=== PATIENT | male | born 1935 | race Caucasian/White ===

== ENCOUNTER 2017-09-25 14:39 | Observation (INO) ==
[2017-09-25 16:35] LABS: Basophils % 0.8 %; Eosinophils # 0.2 K/mcL (0.0-0.6); Hematocrit 42.1 % (37.5-50.1); Hemoglobin 13.9 g/dL (12.9-16.9); Immature Granulocytes % 0.4 % (0-4); Lymphocytes # 0.7 K/mcL (0.6-4.6); Lymphocytes % 13.8 %; Mean Corpuscular Hemoglobin 31.7 pg (28.0-33.3); Mean Corpuscular Volume 96.1 fL (83.0-100.0); Mean Platelet Volume 8.6 fL (9.4-12.4); Monocytes # 0.5 K/mcL (0.0-1.3); Monocytes % 9.1 %; Neutrophils # 3.9 K/mcL (1.6-8.9); Platelet Count 211 K/mcL (140-400); Red Blood Count 4.38 M/mcL (4.19-5.50); Segmented Neutrophils % 72.9 %
[2017-09-25 16:50] LABS: BUN/Creatinine Ratio 15 (6-26); Blood Urea Nitrogen 17 mg/dL (8-23); Calcium 9.6 mg/dL (8.6-10.3); Carbon Dioxide 29 mEq/L (23-29); Chloride 106 mEq/L (98-107); Glucose 88 mg/dL (70-105); Osmolality,Calculated 293 (280-300); Potassium 3.7 mEq/L (3.5-5.1); Sodium 141 mEq/L (136-145); eGFR For African Americans > 60 (> 60); eGFR For Non-African Americans > 60 (> 60)
--- NOTE | 2017-09-25 17:02 | Emergency Department Note ---
Disposition Clinical Impression: Accelerated hypertension, Chest pain, rule out acute myocardial infarction, Heart palpitations, History of CVA (cerebrovascular accident) Disposition: Admitted As Inpatient Condition: Fair Referrals: Santiago Weaver DO [Primary Care Provider] - Forms: ED Satisfaction Letter Time of Disposition: 18:32 General Adult HPI - General Chief complaint: ED Headache Stated complaint: B/P, Heart flutter Time Seen by Provider: 09/25/17 16:08 Source: patient, family Limitations: no limitations Nursing Notes Reviewed: Yes Vital Signs Reviewed: Yes - History of Present Illness HPI Narrative: 82-year-old male history of CVA, CAD status post stents 3, hypertension, hyperlipidemia, taking losartan, hydralazine, Toprol for blood pressure presents with elevated blood pressure, with left-sided arm pain, palpitations, blurry vision. This occurred at about 7 hours prior to arrival. He states his symptoms have improved, he still is mild headache, he denies any new palpitations. His blood pressure was 200/80, patient states that he is concerned about his heart is previous heart attacks, blurry vision was transient , he felt in both eyes. Patient denies history of DVT or PE, he takes aspirin and Plavix but is not taking any other blood thinners. Patient denies chest pain or tightness at this time, but he does have some right lower quadrant pain. Patient denies fever and chills but he has had some loose stool and diarrhea lately. Reports 3 out of 10 right lower quadrant abdominal pain as well. Pt Subjective Complaint: ELevated BLood Pressure Onset (ago): day(s) (7) Location: head, abdomen Radiation: extremity Pain Severity: moderate Pain Scale: 5 Associated symptoms: Reports: headaches, nausea/vomiting. Denies: confusion, chest pain, cough, diaphoresis, fever/chills - Related Data Home Medications Medication Instructions Recorded Confirmed Amlodipine Besylate 10 mg PO DAILY 04/20/16 04/20/16 Aspirin 81 mg PO DAILY 04/20/16 04/20/16 Cholecalciferol (D-3) [Vitamin D] 2,000 unit PO DAILY 04/20/16 04/20/16 Clopidogrel [Plavix] 75 mg PO DAILY 04/20/16 04/20/16 Cyanocobalamin (B-12) [Vitamin B12] 1,000 mcg PO DAILY 04/20/16 04/20/16 Dicyclomine [Bentyl] 10 mg PO QID 04/20/16 04/20/16 Fluticasone Propionate Nasal 1 spray NS BID 04/20/16 04/20/16 [Flonase] Fluvastatin Sodium [Lescol] 40 mg PO QPM 04/20/16 04/20/16 Furosemide [Lasix] 20 mg PO DAILY 04/20/16 04/20/16 Ipratropium [place] 1 spray NS BID 04/20/16 04/20/16 Krill/Om-3/Dha/Epa/Phospho/Ast 1,000 mg PO DAILY 04/20/16 04/20/16 [Krill Oil 1,000 mg Softgel] L. Acidophilus/Pectin, [place] 1 cap PO DAILY 04/20/16 04/20/16 [Acidophilus Probiotic Capsule] Losartan Potassium [Cozaar] 100 mg PO DAILY 04/20/16 04/20/16 Magnesium 250 mg PO DAILY 04/20/16 04/20/16 Metoprolol [Lopressor] 25 mg PO BID 04/20/16 04/20/16 Nitroglycerin [Nitrostat] 0.4 mg SL AD PRN 04/20/16 04/20/16 Oregano Oil [Oil of Oregano] 1,500 mg PO DAILY 04/20/16 04/20/16 Vitamin E (Dl,Tocopheryl Acet) 100 unit PO DAILY 04/20/16 04/20/16 [Vitamin E] Allergies Allergy/AdvReac Type Severity Reaction Status Date / Time Dicloxacillin Allergy Swelling Verified 04/20/16 09:46 of Lip/Tongue/Throat nifedipine Allergy See Verified 04/20/16 09:46 Comments quinine Allergy See Verified 04/20/16 09:46 Comments Wcdmtyq-Cig-Alr Reductase Allergy See Verified 04/20/16 09:46 Inhibitor Comments [Statins] Sulfa (Sulfonamide Allergy See Verified 04/20/16 09:46 Antibiotics) Comments JUDITH Inhibitors AdvReac Cough Verified 04/20/16 09:46 All systems ED: reviewed and negative except as stated. Review of Systems: As Per HPI Constitutional: Denies: fever, chills Eyes: Denies: eye pain ENT ED: Denies: ear pain Cardiovascular: Reports: as per HPI, palpitations Respiratory: Denies: cough, dyspnea, wheezes Gastrointestinal: Reports: abdominal pain, nausea. Denies: vomiting Genitourinary: Denies: urgency, dysuria Neurological: Reports: as per HPI, headache. Denies: weakness, numbness, paresthesias Past Medical History - Past Medical History Attestation: Yes The following information was validated with the patient. Source: patient Medical history: Reports: coronary artery disease, CVA, hyperlipidemia, hypertension, kidney stones, renal disease Surgical history: Reports: angioplasty/stent, sinus surgery, other Psychiatric history: Reports: no psych history - Social History Smoking Status: Never smoker Smokeless Tobacco Status: No Alcohol use: Reports: none Drug use: Reports: none Physical Exam Constitutional: NAD, vital signs elevated blood pressure. Eyes: PERRLA, sclera anicteric ENT & Mouth: MM dry Neck: normal inspection, neck is supple Resp: CTA bilaterally, no resp distress CV: RRR, no m/g/r GI: normal inspection, soft, no guarding or rigidity Neuro: A&O3, CNII-XII grossly intact, LUNA, 5 out of 5 muscle strength upper and lower extremity 4/5 left which is his baseline. No gaze nystagmus, cranial nerves intact, gait within normal limits for age Skin: on limited exam, skin intact with no rashes or lesions - General Limitations: no limitations General appearance: alert, in no apparent distress Course Course Narrative: 82-year-old male with concerning signs and symptoms given blurry vision, headache, elevated hypertension high blood pressure in the 200 systolic at home , currently is 180, he does not appear in acute distress, however he had all these symptoms happen about 7 hours prior to arrival with a history of stroke and CAD palpitations and left arm pain, and headache concerning for anginal equivalent, likely the patient will need to have a head CT, we will give him basic lab work chest x-ray CBC BMP troponin. NIH is 0 - Reevaluation(s) Reevaluation #1: Negative CT scan was negative, the patient has required labetalol 10 mg 2, blood pressure still in the 180s, he chronically lives elevated no no recent to much acutely, given the patient has elevated blood pressure, symptomatically with blurry vision, palpitations left arm pain, and headache, concern for symptomatically hypertension, possible hypertensive emergency, as well as ACS rule out chest pain admitted to [facility] Time: 18:29 Vital Signs Temperature 98.5 F 09/25/17 14:46 Pulse Rate 75 09/25/17 14:46 Respiratory Rate 18 09/25/17 14:46 Blood Pressure 183/107 09/25/17 14:46 O2 Sat by Pulse Oximetry 97 09/25/17 14:46 Temperature 98.5 F 09/25/17 14:46 Pulse Rate 65 09/25/17 18:36 Respiratory Rate 20 09/25/17 18:36 Blood Pressure 167/99 09/25/17 18:36 O2 Sat by Pulse Oximetry 97 09/25/17 18:36 Oxygen Delivery Oxygen Delivery Room Air Medical Decision Making - MDM Narrative Medical decision making narrative: 82-year-old male admitted for possible slurred hypertension, negative head CT and chest x-ray and labwork, troponin was 0.03 recommend trending troponin, possible MRI head, blood pressure reduction over 24 hours, admitted to to the hospitalist service - Medical Records Medical records reviewed: Yes I reviewed the patient's medical records. - Lab Data Lab results reviewed: Yes I reviewed the patient's lab results. Result diagrams: 09/25/17 16:19 09/25/17 16:19 Lab Results 09/25/17 09/25/17 09/25/17 Range/Units 16:19 16:19 16:19 WBC 5.3 (4.3-11.1) K/mcL RBC 4.38 (4.19-5.50) M/mcL Hgb 13.9 (12.9-16.9) g/dL Hct 42.1 (37.5-50.1) % MCV 96.1 (83.0-100.0) fL MCH 31.7 (28.0-33.3) pg MCHC 33.0 (31.6-35.5) g/dL RDW 14.0 (11.5-14.5) % Plt Count 211 (140-400) K/mcL MPV 8.6 L (9.4-12.4) fL Immature Gran % 0.4 (0-4) % Seg Neutrophils % 72.9 % Lymphocytes % 13.8 % Monocytes % 9.1 % Eosinophils % 3.0 % Basophils % 0.8 % Neutrophils # 3.9 (1.6-8.9) K/mcL Lymphocytes # 0.7 (0.6-4.6) K/mcL Monocytes # 0.5 (0.0-1.3) K/mcL Eosinophils # 0.2 (0.0-0.6) K/mcL Basophils # 0.0 (0.0-0.2) K/mcL Sodium 141 (136-145) mEq/L Potassium 3.7 (3.5-5.1) mEq/L Chloride 106 (98-107) mEq/L Carbon Dioxide 29 (23-29) mEq/L BUN 17 (8-23) mg/dL Creatinine 1.15 (0.70-1.30) mg/dL Est GFR ( Amer) > 60 (> 60) Est GFR (Non-Af Amer) > 60 (> 60) BUN/Creatinine Ratio 15 (6-26) Glucose 88 (70-105) mg/dL Calculated Osmolality 293 (280-300) Calcium 9.6 (8.6-10.3) mg/dL Magnesium (1.6-2.6) mg/dL Troponin I 0.03 (< 0.04) ng/mL TSH (0.340-5.600) mcIU/mL 09/25/17 09/25/17 Range/Units 16:19 16:19 WBC (4.3-11.1) K/mcL RBC (4.19-5.50) M/mcL Hgb (12.9-16.9) g/dL Hct (37.5-50.1) % MCV (83.0-100.0) fL MCH (28.0-33.3) pg MCHC (31.6-35.5) g/dL RDW (11.5-14.5) % Plt Count (140-400) K/mcL MPV (9.4-12.4) fL Immature Gran % (0-4) % Seg Neutrophils % % Lymphocytes % % Monocytes % % Eosinophils % % Basophils % % Neutrophils # (1.6-8.9) K/mcL Lymphocytes # (0.6-4.6) K/mcL Monocytes # (0.0-1.3) K/mcL Eosinophils # (0.0-0.6) K/mcL Basophils # (0.0-0.2) K/mcL Sodium (136-145) mEq/L Potassium (3.5-5.1) mEq/L Chloride (98-107) mEq/L Carbon Dioxide (23-29) mEq/L BUN (8-23) mg/dL Creatinine (0.70-1.30) mg/dL Est GFR ( Amer) (> 60) Est GFR (Non-Af Amer) (> 60) BUN/Creatinine Ratio (6-26) Glucose (70-105) mg/dL Calculated Osmolality (280-300) Calcium (8.6-10.3) mg/dL Magnesium 2.1 (1.6-2.6) mg/dL Troponin I (< 0.04) ng/mL TSH 2.191 (0.340-5.600) mcIU/mL - Radiology Data Radiology results reviewed: Yes I reviewed the patient's radiology results. Chest X-Ray 09/25/17 14:52 IMPRESSION: 1. No acute abnormality. D/ / Chuck Wheeler MD / Chuck Wheeler MD Interpreting Provider: Chuck Wheeler MD Head CT 09/25/17 16:56 IMPRESSION: No acute intracranial abnormality. D/ / Yari Lind MD / Yari Lind MD Interpreting Provider: Yari Lind MD Abdomen/Pelvis CT 09/25/17 17:02 IMPRESSION: 1. No acute abnormality. 2. Prostatomegaly with chronic bladder outlet obstruction D/ / Chuck Wheeler MD / Chuck Wheeler MD Interpreting Provider: Chuck Wheeler MD - EKG Data EKG #1 EKG attestation: Yes I reviewed and interpreted this EKG. EKG shows normal: sinus rhythm Rate: normal (69 bpm to 40 PRQS [address] segment elevations or depressions.) Attestation Statement - Attestation Attestation: I, Mandeep Rousseau, examined this patient and my medical decision-making was reviewed with the COAL HAND[employer] SUPERVISOR/PA/Advanced Practice Nurse/Resident Physician. I agree with the documented findings, disposition and treatment plan as described except to the extent set forth below. 82-year-old male presents emergency Department with concerns of acute onset elevated blood pressure, left upper extremity pain, blurred vision. Patient recently evaluated in the hospital for elevated blood pressure. Repeat BP in the emergency department has systolic of 220. Patient denies missing any of his medications. Patient has a history of previous CVA with weakness in the left upper extremity. He denies worsening of those symptoms. CT of the head was negative for acute fracture [place] hemorrhage. Initial troponin was negative. Patient given labetalol for elevated BP. Patient admitted to the hospital for further care and evaluation.
[2017-09-25] MEDS ORDERED: *HR* Labetalol 20 MG/4 ML SYRINGE IVP ONE (18:00)
[2017-09-25] MEDS: *HR* Labetalol 100 MG/20 ML MDV IVP ONE ×2 (18:04→18:06)
[2017-09-25] MEDS ORDERED: Aspirin 81 MG TAB.CHEW PO ONE (18:10)
[2017-09-26] MEDS ORDERED: Naloxone 0.4 MG/ML INJ IVP PRN (02:25)
[2017-09-26] MEDS ORDERED: Aspirin 81 MG TAB.CHEW PO PRN (02:27)
[2017-09-26] MEDS ORDERED: Nitroglycerin 0.4 MG TAB.SUBL SL PRN (02:27)
--- NOTE | 2017-09-26 02:36 | Internal Med History&Physical ---
Date of Encounter: 09/26/17 Time of Encounter: :31 Assessment and Plan (1) Accelerated hypertension Current visit: Yes Status: Acute 82/male Admitted with worsening headache along with the blurry vision. Noted that his blood pressure was 200/80. CT head/abdomen pelvis: Negative for any acute pathology. Chest x-ray: Negative for any acute process. Please note that patient is on 3 different antihypertensive medications. Patient received intravenous labetalol in the emergency room. Patient's blood pressure has a downward trend. The last blood pressure was 159/71.(20% lowering of systolic blood pressure) On examination: Patient is comfortably lying in the bed. Patient is not keen for complete neurological examination as it is too a.m. in the morning. Brief neurological examination was within normal limits. Assessment: Accelerated hypertension likely secondary to the noncompliance. Multiple comorbid conditions. Plan: Admitted as an observation. Cycle troponin. Resume medication. Repeat labs tomorrow. Explained to the patient at length regarding medication importance/ noncompliance issue. Patient promises that he will take his medications regularly. Of note I examined this patient in31 along with the patient's RN at bedside All questions answered (2) Coronary artery disease Current visit: Yes Status: Acute Patient is known to have a coronary artery disease. Patient is chest pain-free at this time. We will resume all the home medication. Qualifiers: Coronary Disease-Associated Artery/Lesion type: [place] artery [place] vs. transplanted heart: [place] heart Associated angina: angina presence unspecified Qualified Code(s): I25.10 - Atherosclerotic heart disease of [place] coronary artery without angina pectoris (3) Hyperlipidemia Current visit: Yes Status: Acute We will get lipid panel tomorrow. We will resume Lipitor 40 mg in the night. Qualifiers: Hyperlipidemia type: unspecified Qualified Code(s): E78.5 - Hyperlipidemia , unspecified (4) History of CVA (cerebrovascular accident) Current visit: Yes Status: Acute Patient is a old history of CVA. At this point brief neurological examination was within acceptable range. (5) DVT prophylaxis Current visit: Yes Status: Acute SCD Medical decision making: This patient has a moderate to severe risk of worsening in spite of being on appropriate medication due to the underlying complex medical condition. Internal Medicine - H&P: HPI Chief complaint: Headache Admitted From: Emergency Dept Plans for Post Hospital Care: Home History of present illness: Mr. Silva is a 82 year old male who has primary care physician from [place] ( Dr Santiago Hearn). Patient is past medical history of hypertension which is uncontrolled, hyperlipidemia, old CVA, coronary artery disease with stent( per patient), kidney stones in the past. 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 Patient had blurry vision for a short period of time and this was the main reason why he decided to come to the emergency room for further evaluation. She denies chest pain, shortness of breath, nausea, vomiting, abdominal pain, dizziness and diarrhea. Patient was evaluated in the emergency room. Basic labs were drawn which were inconclusive. From the imaging point of view CT scan of the head/abdomen and pelvis not reveal any abnormality. Chest x-ray was negative. Upon arrival to the emergency room it was noted that patient's blood pressure was 200/80. Please note that patient is on 3 different antihypertensive that his losartan, hydralazine and Coreg. Patient received intravenous labetalol in the emergency room. Reason for admission: Uncontrolled blood pressure/hypertensive urgency. Past Med Surg Social Fam HX - Past Medical History Medical history: coronary artery disease, CVA, hyperlipidemia, hypertension, kidney stones, renal disease Psychiatric history: no psych history - Past Surgical History Surgical History: angioplasty/stent, sinus surgery, other - Social History Smoking Status: Never smoker Smokeless Tobacco Status: No Alcohol use: none Drug use: none Internal Medicine - H&P: Meds Aspirin 81 mg PO DAILY PRN 04/20/16 [History] Cholecalciferol (D-3) [Vitamin D] 2,000 unit PO DAILY 04/20/16 [History] Clopidogrel [Plavix] 75 mg PO DAILY 04/20/16 [History] Cyanocobalamin (B-12) [Vitamin B12] 1,000 mcg PO DAILY 04/20/16 [History] Fluticasone Propionate Nasal [Flonase] 1 spray NS BID 04/20/16 [History] Furosemide [Lasix] 20 - 30 mg PO DAILY 04/20/16 [History] Ipratropium [place] 1 spray NS BID 04/20/16 [History] L. Acidophilus/Pectin, [place] [Acidophilus Probiotic Capsule] 1 cap PO DAILY [History] Losartan Potassium [Cozaar] 100 mg PO DAILY 04/20/16 [History] Magnesium 250 mg PO DAILY 04/20/16 [History] Nitroglycerin [Nitrostat] 0.4 mg SL Q5M PRN 04/20/16 [History] Oregano Oil [Oil of Oregano] 1,500 mg PO DAILY 04/20/16 [History] Vitamin E (Dl,Tocopheryl Acet) [Vitamin E] 100 unit PO DAILY 04/20/16 [History] Atorvastatin [Lipitor] 40 mg PO HS 09/25/17 [History] Carvedilol 3.125 mg PO BID 09/25/17 [History] Fish Oil/Borage/Flax/Om3,6,9#1 [[place] 3-6-9 1,200 mg Softgel] 1,200 mg PO DAILY 09/25/17 [History] Hydralazine HCl 50 mg PO TID 09/25/17 [History] Vitamin O 2.5 ml PO BID 09/25/17 [History] 3 Allergy/AdvReac Type Severity Reaction Status Date / Time Dicloxacillin Allergy Swelling Verified 04/20/16 09:46 of Lip/Tongue/Throat nifedipine Allergy See Verified 04/20/16 09:46 Comments quinine Allergy See Verified 04/20/16 09:46 Comments Dzxcrwc-Tfu-Chd Reductase Allergy See Verified 04/20/16 09:46 Inhibitor Comments [Statins] Sulfa (Sulfonamide Allergy See Verified 04/20/16 09:46 Antibiotics) Comments JUDITH Inhibitors AdvReac Cough Verified 04/20/16 09:46 All Systems PM: A 10-system review of systems was performed and is negative for pertinent findings except as documented above in the HPI. - Constitutional Constitutional: lethargy, malaise, no chills, no fever(s), no night sweats - EENT Eyes: no change in vision, no discharge, no pain, no photophobia Ears: no ear discharge, no ear pain, no tinnitus Nose, mouth and throat: no dysphagia, no nasal discharge, no neck pain, no sore throat - Cardiovascular Cardiovascular ROS IM: no chest pain, no diaphoresis, no dyspnea, no lightheadedness, no palpitations, no syncope - Respiratory Respiratory: no cough, no dyspnea, no wheezing, no excessive phlegm production - Gastrointestinal Gastrointestinal: no abdominal pain, no diarrhea, no hematemesis, no hematochezia, no melena, no nausea, no vomiting - Musculoskeletal Musculoskeletal ROS IM: no numbness, no tingling - Integumentary Integumentary IM: no rash, no unusual bruising - Neurological Neurological ROS: headache(s), no confusion, no convulsions, no focal weakness, no numbness, no tingling, no tremor(s) - Hematologic/Lymphatic Hematologic/Lymphatic: no easy bruising - Constitutional Vitals: Temp Pulse Resp BP Pulse Ox 97.8 F 67 18 159/71 96 09/25/17 23:33 09/25/17 23:33 09/25/17 23:33 09/25/17 23:33 09/25/17 23:33 General appearance: Present: A&O X 3, pleasant, no acute distress, answers questions appropriately - Head Head exam: Present: atraumatic, normocephalic - Eye Eye exam: Present: PERRL, conjuntiva pink, sclera anicteric Pupils: Present: PERRL - Neck Neck exam general surgery: Present: supple, trachea midline. Absent: lymphadenopathy - Respiratory Respiratory exam: Present: CTAB. Absent: accessory muscle use, rales, rhonchi, wheezes - Cardiovascular Cardiovascular exam: Present: RRR, +S1, +S2. Absent: diastolic murmur, gallop, rubs, systolic murmur - GI/Abdominal GI/Abdominal exam: Present: normal bowel sounds, soft, no peritoneal signs. Absent: distended, tenderness - Extremities Exam Extremities exam: Present: warm, radial pulses palpable and symmetrical. Absent : calf tenderness, cyanotic, pedal edema - Neurological Exam Neurological exam: Present: CN II-XII intact, oriented X3, no focal deficits. Absent: pronater drift, facial droop, speech deficit - Skin Skin exam: Present: dry, intact Internal Med - H&P Results - Labs CBC & Chem 7: 09/25/17 16:19 09/25/17 16:19
[2017-09-26 03:32] LABS: Basophils % 0.5 %; Eosinophils # 0.1 K/mcL (0.0-0.6); Eosinophils % 3.4 %; Hemoglobin 12.5 g/dL (12.9-16.9); Immature Granulocytes % 0.7 % (0-4); Lymphocytes # 0.8 K/mcL (0.6-4.6); Lymphocytes % 18.2 %; Mean Corpuscular HGB Conc 33.8 g/dL (31.6-35.5); Mean Corpuscular Hemoglobin 32.5 pg (28.0-33.3); Mean Corpuscular Volume 96.1 fL (83.0-100.0); Mean Platelet Volume 8.5 fL (9.4-12.4); Monocytes # 0.5 K/mcL (0.0-1.3); Monocytes % 12.5 %; Neutrophils # 2.7 K/mcL (1.6-8.9); Platelet Count 184 K/mcL (140-400); Red Blood Count 3.85 M/mcL (4.19-5.50); Red Cell Distribution Width 13.7 % (11.5-14.5); Segmented Neutrophils % 64.7 %
[2017-09-26 03:50] LABS: Prothrombin Time 10.5 Seconds (9.4-12.1)
[2017-09-26 03:53] LABS: Activated Partial Thrombo Time 29.6 Seconds (26.0-36.0)
[2017-09-26 04:17] LABS: Alanine Aminotransferase 9 Units/L (7-52); Albumin 3.7 g/dL (3.5-5.7); Albumin/Globulin Ratio 1.4 (1.1-2.2); Alkaline Phosphatase 66 Units/L (34-104); Aspartate Amino Transferase 13 Units/L (13-39); BUN/Creatinine Ratio 16 (6-26); Bilirubin,Total 0.9 mg/dL (0.3-1.0); Blood Urea Nitrogen 16 mg/dL (8-23); Carbon Dioxide 28 mEq/L (23-29); Chloride 107 mEq/L (98-107); Chol/HDL Ratio 3.6 (0-4.9); Cholesterol 155 mg/dL (< 200); Globulin 2.6 g/dL (2.4-3.5); Glucose 69 mg/dL (70-105); HDL Cholesterol 43 mg/dL (40-59); LDL Cholesterol,Calculated 75 mg/dL (0-99); Osmolality,Calculated 294 (280-300); Phosphorous 4.2 mg/dL (2.7-4.5); Potassium 3.4 mEq/L (3.5-5.1); Sodium 142 mEq/L (136-145); Total Protein 6.3 g/dL (6.4-8.9); Triglycerides 184 mg/dL (< 150); eGFR For African Americans > 60 (> 60); eGFR For Non-African Americans > 60 (> 60)
[2017-09-26] MEDS ORDERED: Saline Nasal Spray 44 ML BOTTLE NS PRN (07:45)
[2017-09-26] MEDS ORDERED: Cyanocobalamin (B-12) 1,000 MCG TABLET PO SCH (09:00)
[2017-09-26] MEDS ORDERED: Magnesium Oxide 400 MG TABLET PO SCH (09:00)
[2017-09-26] MEDS ORDERED: Aspirin Enteric Coated 81 MG Tablet PO SCH (09:00)
[2017-09-26] MEDS ORDERED: OMEGA PO SCH (09:00)
[2017-09-26] MEDS ORDERED: Fluticasone Propionate Nasal 50 MCG/SPRAY BOTTLE NS SCH (09:00)
[2017-09-26] MEDS ORDERED: hydrALAZINE 25 MG TABLET PO SCH (09:00)
[2017-09-26] MEDS ORDERED: IPRATROPIUM BROMIDE NS SCH (09:00)
[2017-09-26] MEDS ORDERED: Cholecalciferol (D-3) 1,000 UNIT TABLET PO SCH (09:00)
[2017-09-26 11:14] VITALS: BP 130/75
--- NOTE | 2017-09-26 13:58 | Discharge Summary ---
- NOTES TO OUTPATIENT PROVIDER Notes to Outpatient Provider: Follow-up on patient's hypertension Orders not resulted at time of discharge: Echocardiogram ordered and to be done as outpatient Date of Encounter: 09/26/17 Time of Encounter: 13:55 - Discharge Diagnosis (1) Accelerated hypertension Priority: Primary Status: Resolved (2) Coronary artery disease Priority: Secondary Status: Acute Qualifiers: Coronary Disease-Associated Artery/Lesion type: [place] artery [place] vs. transplanted heart: [place] heart Associated angina: angina presence unspecified Qualified Code(s): I25.10 - Atherosclerotic heart disease of [place] coronary artery without angina pectoris (3) Hypertension Priority: Secondary Status: Chronic Qualifiers: Hypertension type: essential hypertension Qualified Code(s): I10 - Essential (primary) hypertension Hospital course: Mr. Silva is a 82 year old male patient with a history of coronary artery disease, hypertension, hyperlipidemia, prior stroke presented to the ER with complaints of headache associated with blurred vision for a short period of time prior to presentation. His symptoms improved by the time he came to the ER although he continued to have a headache. CT scan of the head was negative for any acute stroke. Patient was found to be severely hypertensive with blood pressure of 209/121 mm Hg. He was treated with labetalol intravenously and then hospitalized for further monitoring. Since hospitalization his blood pressure has been better controlled. He has been placed back on his usual antihypertensive regimen. His headache has improved. He has not had any chest pain. Blurred vision had resolved prior to presentation. Troponins have been negative. He is now stable to be discharged home. His dosage of carvedilol will be increased to 6.25 mg by mouth twice daily to control his blood pressure better. His other medications are left unchanged at this time. He will follow up with his primary care provider for further management of his hypertension. He is advised to return to the ER if he develops a recurrence of his symptoms. He is also requests to stay compliant with his medication regimen to avoid further episodes of accelerated hypertension. Patient is set up for an echocardiogram as outpatient. He can follow-up on this with his primary care provider. Discharge discussed with: patient - Time Spent with Patient Total time spent providing and/or coordinating discharge services: Less than 30 minutes (25 min) - Discharge Medications Prescriptions: Carvedilol [Coreg] 6.25 mg PO BIDWM #60 tablet Home Medications: Aspirin 81 mg PO DAILY PRN 04/20/16 [History] Cholecalciferol (D-3) [Vitamin D] 2,000 unit PO DAILY 04/20/16 [History] Clopidogrel [Plavix] 75 mg PO DAILY 04/20/16 [History] Cyanocobalamin (B-12) [Vitamin B12] 1,000 mcg PO DAILY 04/20/16 [History] Fluticasone Propionate Nasal [Flonase] 1 spray NS BID 04/20/16 [History] Furosemide [Lasix] 20 - 30 mg PO DAILY 04/20/16 [History] Ipratropium [place] 1 spray NS BID 04/20/16 [History] L. Acidophilus/Pectin, [place] [Acidophilus Probiotic Capsule] 1 cap PO DAILY [History] Losartan Potassium [Cozaar] 100 mg PO DAILY 04/20/16 [History] Magnesium 250 mg PO DAILY 04/20/16 [History] Nitroglycerin [Nitrostat] 0.4 mg SL Q5M PRN 04/20/16 [History] Oregano Oil [Oil of Oregano] 1,500 mg PO DAILY 04/20/16 [History] Vitamin E (Dl,Tocopheryl Acet) [Vitamin E] 100 unit PO DAILY 04/20/16 [History] Atorvastatin [Lipitor] 40 mg PO HS 09/25/17 [History] Fish Oil/Borage/Flax/Om3,6,9#1 [[place] 3-6-9 1,200 mg Softgel] 1,200 mg PO DAILY 09/25/17 [History] Hydralazine HCl 50 mg PO TID 09/25/17 [History] Vitamin O 2.5 ml PO BID 09/25/17 [History] Carvedilol [Coreg] 6.25 mg PO BIDWM #60 tablet 09/26/17 [Rx] Allergies/Adverse Reactions: 3 Allergy/AdvReac Type Severity Reaction Status Date / Time Dicloxacillin Allergy Swelling Verified 04/20/16 09:46 of Lip/Tongue/Throat nifedipine Allergy See Verified 04/20/16 09:46 Comments quinine Allergy See Verified 04/20/16 09:46 Comments Gltyewu-Ayi-Nol Reductase Allergy See Verified 04/20/16 09:46 Inhibitor Comments [Statins] Sulfa (Sulfonamide Allergy See Verified 04/20/16 09:46 Antibiotics) Comments JUDITH Inhibitors AdvReac Cough Verified 04/20/16 09:46 Date of admission: 09/25/17 19:54 Primary care physician: Santiago Weaver DO Discharging clinician: Reba Snider Anticipated date of discharge: 09/26/17 - Constitutional Vitals: Temp Pulse Resp BP Pulse Ox 98.3 F 72 14 130/75 96 09/26/17 11:11 09/26/17 11:11 09/26/17 11:11 09/26/17 11:11 09/26/17 11:11 General appearance: Present: A&O X 3, pleasant, no acute distress, answers questions appropriately - Respiratory Respiratory exam: Present: CTAB. Absent: accessory muscle use, rales, rhonchi, wheezes - Cardiovascular Cardiovascular exam: Present: RRR, +S1, +S2. Absent: diastolic murmur, gallop, rubs, systolic murmur - GI/Abdominal GI/Abdominal exam: Present: normal bowel sounds, soft, no peritoneal signs. Absent: distended, tenderness - Extremities Exam Extremities exam: Present: warm, radial pulses palpable and symmetrical. Absent : calf tenderness, cyanotic, pedal edema - Neurological Exam Neurological exam: Present: alert, CN II-XII intact, oriented X3, no focal deficits, strengths equal and symetr throughout. Absent: facial droop, speech deficit - Patient Status Disposition: Home, Self-Care Condition: Good Functional capacity at discharge: independent ambulation Overall status at discharge: patient is progressing back to baseline - Ambulatory Orders Ambulatory Orders: EV echocardiogram Time Frame: 1 Day, Facility: [facility], Location: Cardiopulmonary Svc EV echocardiogram Time Frame: 1 Day, Facility: [facility], Location: Cardiopulmonary Svc - Discharge Instructions Instructions: Chronic Hypertension (DC) Follow Up With: Santiago Weaver DO [Primary Care Provider] - 10/03/17 1:00 pm (Follow up as scheduled ) - Diet and Activity Activity: increase activity as tolerated Diet: low fat, low cholesterol, low salt diet
--- NOTE | 2017-09-29 09:22 | Electrocardiograph Report ---
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
== END 2017-09-26 15:40 | disposition home or self-care (01) ==
LOC: 2ANU 14:39 → EMEROO 14:39 → SUATTDRO 19:54 → 2ANU 20:17
PROVIDERS: ADMIT Internal Medicine; ATTEND Internal Medicine

== ENCOUNTER 2017-10-10 02:47 | Inpatient (IN) ==
[2017-10-10] MEDS ORDERED: Nitroglycerin 0.4 MG TAB.SUBL SL ONE (03:05)
[2017-10-10 03:14] LABS: Basophils # 0.1 K/mcL (0.0-0.2); Basophils % 0.5 %; Eosinophils # 0.1 K/mcL (0.0-0.6); Eosinophils % 1.5 %; Hematocrit 40.7 % (37.5-50.1); Hemoglobin 13.4 g/dL (12.9-16.9); Immature Granulocytes % 0.5 % (0-4); Lymphocytes # 0.9 K/mcL (0.6-4.6); Lymphocytes % 9.3 %; Mean Corpuscular HGB Conc 32.9 g/dL (31.6-35.5); Mean Corpuscular Hemoglobin 31.8 pg (28.0-33.3); Mean Corpuscular Volume 96.7 fL (83.0-100.0); Mean Platelet Volume 8.3 fL (9.4-12.4); Monocytes # 0.7 K/mcL (0.0-1.3); Monocytes % 7.8 %; Neutrophils # 7.4 K/mcL (1.6-8.9); Platelet Count 223 K/mcL (140-400); Red Blood Count 4.21 M/mcL (4.19-5.50); Red Cell Distribution Width 13.5 % (11.5-14.5); Segmented Neutrophils % 80.4 %
--- NOTE | 2017-10-10 03:16 | Emergency Department Note ---
Disposition Clinical Impression: Elevated troponin Chest pain Qualifiers: Chest pain type: unspecified Qualified Code(s): R07.9 - Chest pain, unspecified Disposition: Admitted As Inpatient Condition: Fair Forms: ED Satisfaction Letter General Adult HPI - General Chief complaint: ED Chest Pain Stated complaint: Chest pain Time Seen by Provider: 10/10/17 02:51 Source: patient Limitations: no limitations Nursing Notes Reviewed: Yes Vital Signs Reviewed: Yes - History of Present Illness HPI Narrative: 82 y/o male w/ PMH of CAD, HTN, HLD, CKD. 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 Is not having dyspnea. No diaphoresis. Last cath was about 5 years ago and does have stents. Also admits to generalized fatigue. Pain is not pleuritic. No hemoptysis. Took a nitro at home w/o relief. 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 Radiation: non-radiation Pain Severity: severe Pain Scale: 8 Improves with: nothing Worsens with: nothing Associated symptoms: Reports: denies other symptoms Treatments Prior to Arrival: none - Related Data Home Medications Medication Instructions Recorded Confirmed Aspirin 81 mg PO DAILY PRN 04/20/16 09/25/17 Cholecalciferol (D-3) [Vitamin D] 2,000 unit PO DAILY 04/20/16 09/25/17 Clopidogrel [Plavix] 75 mg PO DAILY 04/20/16 09/25/17 Cyanocobalamin (B-12) [Vitamin B12] 1,000 mcg PO DAILY 04/20/16 09/25/17 Fluticasone Propionate Nasal 1 spray NS BID 04/20/16 09/25/17 [Flonase] Furosemide [Lasix] 20 - 30 mg PO DAILY 04/20/16 09/25/17 Ipratropium [place] 1 spray NS BID 04/20/16 09/25/17 L. Acidophilus/Pectin, [place] 1 cap PO DAILY 04/20/16 09/25/17 [Acidophilus Probiotic Capsule] Losartan Potassium [Cozaar] 100 mg PO DAILY 04/20/16 09/25/17 Magnesium 250 mg PO DAILY 04/20/16 09/25/17 Nitroglycerin [Nitrostat] 0.4 mg SL Q5M PRN 04/20/16 09/25/17 Oregano Oil [Oil of Oregano] 1,500 mg PO DAILY 04/20/16 09/25/17 Vitamin E (Dl,Tocopheryl Acet) 100 unit PO DAILY 04/20/16 09/25/17 [Vitamin E] Atorvastatin [Lipitor] 40 mg PO HS 09/25/17 09/25/17 Fish Oil/Borage/Flax/Om3,6,9#1 1,200 mg PO DAILY 09/25/17 09/25/17 [[place] 3-6-9 1,200 mg Softgel] Hydralazine HCl 50 mg PO TID 09/25/17 09/25/17 Vitamin O 2.5 ml PO BID 09/25/17 09/25/17 Previous Rx's Medication Instructions Recorded Carvedilol [Coreg] 6.25 mg PO BIDWM #60 tablet 09/26/17 Allergies Allergy/AdvReac Type Severity Reaction Status Date / Time Dicloxacillin Allergy Swelling Verified 04/20/16 09:46 of Lip/Tongue/Throat nifedipine Allergy See Verified 04/20/16 09:46 Comments quinine Allergy See Verified 04/20/16 09:46 Comments [id number] Reductase Allergy See Verified 04/20/16 09:46 Inhibitor Comments [Statins] Sulfa (Sulfonamide Allergy See Verified 04/20/16 09:46 Antibiotics) Comments JUDITH Inhibitors AdvReac Cough Verified 04/20/16 09:46 All systems ED: reviewed and negative except as stated. Constitutional: Denies: fever ENT ED: Denies: throat pain Cardiovascular: Reports: chest pain Respiratory: Denies: cough Musculoskeletal: Denies: back pain Integumentary: Denies: rash Endocrine: Denies: fatigue Past Medical History - Past Medical History Medical history: Reports: coronary artery disease, CVA, hyperlipidemia, hypertension, kidney stones, renal disease Surgical history: Reports: angioplasty/stent, sinus surgery, other Psychiatric history: Reports: no psych history - Social History Smoking Status: Never smoker Smokeless Tobacco Status: No Alcohol use: Reports: none Drug use: Reports: none Physical Exam - General Limitations: no limitations - Head Head exam: atraumatic - Eye Eye exam: Present: normal appearance, PERRL - ENT ENT exam: normal exam, normal oropharynx - Neck Neck exam: Present: normal inspection - Chest Chest inspection: Present: normal inspection - Respiratory Respiratory exam: Present: normal lung sounds bilaterally. Absent: respiratory distress - Cardiovascular Cardiovascular exam: Present: regular rate, normal rhythm - Abdominal Exam Abdominal exam: Present: soft, Non-Tender - Extremities Exam Extremities exam: Present: pedal edema (1+ bilateral) - Neurological Exam Neurological exam: Present: alert, oriented X3 - Psychiatric Psychiatric exam: Present: normal affect, normal mood - Skin Skin exam: Present: warm, dry Course Course Narrative: Nitro improved his CP. Will start nitro drip. Troponin is elevated. No EKG changes. Will admit on heparin drip. Vital Signs Temperature 99 F 10/10/17 02:50 Pulse Rate 105 10/10/17 02:50 Respiratory Rate 18 10/10/17 02:50 Blood Pressure 165/86 10/10/17 02:50 O2 Sat by Pulse Oximetry 96 10/10/17 02:50 Temperature 99 F 10/10/17 02:50 Pulse Rate 102 10/10/17 04:04 Respiratory Rate 18 10/10/17 04:04 Blood Pressure 143/89 10/10/17 04:04 O2 Sat by Pulse Oximetry 98 10/10/17 04:04 Oxygen Delivery Oxygen Delivery Room Air Medical Decision Making - Medical Records Medical records reviewed: Yes I reviewed the patient's medical records. - Lab Data Lab results reviewed: Yes I reviewed the patient's lab results. Result diagrams: 10/10/17 02:55 10/10/17 02:55 Lab Results 10/10/17 10/10/17 10/10/17 Range/Units 02:55 02:55 02:55 WBC 9.2 (4.3-11.1) K/mcL RBC 4.21 (4.19-5.50) M/mcL Hgb 13.4 (12.9-16.9) g/dL Hct 40.7 (37.5-50.1) % MCV 96.7 (83.0-100.0) fL MCH 31.8 (28.0-33.3) pg MCHC 32.9 (31.6-35.5) g/dL RDW 13.5 (11.5-14.5) % Plt Count 223 (140-400) K/mcL MPV 8.3 L (9.4-12.4) fL Immature Gran % 0.5 (0-4) % Seg Neutrophils % 80.4 % Lymphocytes % 9.3 % Monocytes % 7.8 % Eosinophils % 1.5 % Basophils % 0.5 % Neutrophils # 7.4 (1.6-8.9) K/mcL Lymphocytes # 0.9 (0.6-4.6) K/mcL Monocytes # 0.7 (0.0-1.3) K/mcL Eosinophils # 0.1 (0.0-0.6) K/mcL Basophils # 0.1 (0.0-0.2) K/mcL PT 10.9 (9.4-12.1) Seconds INR 1.0 APTT 30.8 (26.0-36.0) Seconds Sodium (136-145) mEq/L Potassium (3.5-5.1) mEq/L Chloride (98-107) mEq/L Carbon Dioxide (23-29) mEq/L BUN (8-23) mg/dL Creatinine (0.70-1.30) mg/dL Est GFR ( Amer) (> 60) Est GFR (Non-Af Amer) (> 60) BUN/Creatinine Ratio (6-26) Glucose (70-105) mg/dL Calculated Osmolality (280-300) Calcium (8.6-10.3) mg/dL Troponin I (< 0.04) ng/mL B-Natriuretic Peptide 332 H (Less than 100) pg/mL 10/10/17 Range/Units 02:55 WBC (4.3-11.1) K/mcL RBC (4.19-5.50) M/mcL Hgb (12.9-16.9) g/dL Hct (37.5-50.1) % MCV (83.0-100.0) fL MCH (28.0-33.3) pg MCHC (31.6-35.5) g/dL RDW (11.5-14.5) % Plt Count (140-400) K/mcL MPV (9.4-12.4) fL Immature Gran % (0-4) % Seg Neutrophils % % Lymphocytes % % Monocytes % % Eosinophils % % Basophils % % Neutrophils # (1.6-8.9) K/mcL Lymphocytes # (0.6-4.6) K/mcL Monocytes # (0.0-1.3) K/mcL Eosinophils # (0.0-0.6) K/mcL Basophils # (0.0-0.2) K/mcL PT (9.4-12.1) Seconds INR APTT (26.0-36.0) Seconds Sodium 140 (136-145) mEq/L Potassium 3.8 (3.5-5.1) mEq/L Chloride 103 (98-107) mEq/L Carbon Dioxide 26 (23-29) mEq/L BUN 19 (8-23) mg/dL Creatinine 1.19 (0.70-1.30) mg/dL Est GFR ( Amer) > 60 (> 60) Est GFR (Non-Af Amer) 58 L (> 60) BUN/Creatinine Ratio 16 (6-26) Glucose 101 (70-105) mg/dL Calculated Osmolality 292 (280-300) Calcium 9.8 (8.6-10.3) mg/dL Troponin I 0.08 H* (< 0.04) ng/mL B-Natriuretic Peptide (Less than 100) pg/mL - Radiology Data Radiology results reviewed: Yes I reviewed the patient's radiology results. - EKG Data EKG #1 EKG attestation: Yes I reviewed and interpreted this EKG. EKG shows normal: sinus rhythm Rate: normal Rhythm: NSR Interpretation: other (1* AV block. No acute changes) Critical Care Time Critical Care Time: Yes Total Critical Care Time: 35 Attestation: Critical care performed: Time is exclusive of separately billable procedures. Time includes: direct patient care, patient reassessment, coordination of patient care, interpretation of data (laboratory data, radiology data, and respiratory data), review of patient's medical records, medical consultation and documentation of patient care. Procedures included in critical care time: Procedures excluded from critical care time: Attestation Statement - Attestation Attestation: I, Maximino Carvajal DO, examined this patient [id number] and my medical decision-making was reviewed with Dr. Abimael Santa, Resident Physician. I agree with the documented findings, disposition and treatment plan as described except to the extent set forth below. Please see my progress notes for details. 82-year-old male presents emergency room with left-sided shoulder and back pain that radiates into his anterior chest. Patient has had this several times in the past. The most recent incident involved cardiac related issues. 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 Patient is still describing symptoms and pain. He took one nitroglycerin home with minimal relief. He currently takes Plavix. And a baby aspirin. Patient will be provided with aspirin and nitroglycerin trial. Patient will be evaluated for cardiac related symptoms causing this presentation. Physical exam shows a well-appearing male in no apparent distress. He has no reproducible symptoms on palpation. His lungs are clear heart is regular. Abdomen is soft nontender nondistended with no guarding no rigidity. Patient has no acute signs of pitting edema or swelling of the lower extremities. Patient will have cardiac evaluation. Admission process once workup is established. No critical applied during this Treatment course at this time. See detailed documentation of the physical exam, medical intervention, medical decision-making and disposition and resident physician's note. Patient family informed of her projected course of care including the admission and then covered with this plan. Patient is otherwise symptom-free. [id number] Patient brought to have elevated troponin. He has never had an elevated troponin based on our records. Patient's symptoms are still present despite the patient looking to be in no distress here in the emergency room. He says that he has chest discomfort that he rates his pain as a 7 out of 10. He was provided with nitroglycerin and went on to a 6 out of 10. Despite having that type of pain at this time the patient is resting. He only describes pain when asked. Patient will use patient will be started on nitroglycerin drip. 35 minutes of critical care about this patient's treatment course secondary to the management of this condition. Patient is otherwise clinically stable. He will be admitted at this time. Patient has a stable hemoglobin. He is currently on Plavix. We will also start him for angina presentation. Patient will require admission and cardiac evaluation.
[2017-10-10 03:19] LABS: Prothrombin Time 10.9 Seconds (9.4-12.1)
[2017-10-10 03:22] LABS: Activated Partial Thrombo Time 30.8 Seconds (26.0-36.0)
[2017-10-10 03:43] LABS: Troponin I 0.08 ng/mL (< 0.04)
[2017-10-10 03:54] LABS: Chloride 103 mEq/L (98-107); Potassium 3.8 mEq/L (3.5-5.1); Sodium 140 mEq/L (136-145)
[2017-10-10 04:07] LABS: BUN/Creatinine Ratio 16 (6-26); Blood Urea Nitrogen 19 mg/dL (8-23); Calcium 9.8 mg/dL (8.6-10.3); Carbon Dioxide 26 mEq/L (23-29); Glucose 101 mg/dL (70-105); Osmolality,Calculated 292 (280-300); eGFR For African Americans > 60 (> 60); eGFR For Non-African Americans 58 (> 60)
[2017-10-10] MEDS ORDERED: *HR* Heparin 5,000 UNIT/ML VIAL IVP ONE (04:41)
[2017-10-10] MEDS ORDERED: *HR* Heparin 5,000 UNIT/ML VIAL IVP PRN (04:41)
[2017-10-10] MEDS ORDERED: Nitroglycerin 25 MG/250 ML INFUS..BTL IVC SCH (04:45)
[2017-10-10] MEDS: Heparin 25,000 UNIT/500 ML D5W 25,000 UNIT/500 ML BAG IVC SCH (04:53)
[2017-10-10] MEDS ORDERED: Acetaminophen 325 MG TABLET PO PRN (05:25)
[2017-10-10] MEDS ORDERED: Naloxone 0.4 MG/ML INJ IVP PRN (05:25)
[2017-10-10] MEDS ORDERED: Aspirin 81 MG TAB.CHEW PO PRN (05:28)
--- NOTE | 2017-10-10 05:36 | Internal Med History&Physical ---
Date of Encounter: 10/10/17 Time of Encounter: 04:45 Assessment and Plan (1) NSTEMI (non-ST elevated myocardial infarction) Current visit: Yes Status: Acute Patient has a chest pain with left arm/shoulder/jaw radiation. Patient has history of CAD S/P stent. Patient generally has history of uncontrolled hypertension. EKG revealed no significant ST elevation. Consider NSTEMI. - Place patient on continuous cardiac monitoring - Track totally 3 sets of troponin - Low-dose heparin drip and in DVT drip started from ER, will continue. - Keep patient nothing by mouth, consult cardiology in a.m. (2) Hypertension Current visit: Yes Status: Acute Patient has history of uncontrolled hypertension. Per patient's daughter, he has "kidney stent" previously (For renal artery stenosis?). Right now his blood pressure is well controlled. Will continue home medications. Patient is also on NTG drip. Closely follow up vitals per protocol Qualifiers: Hypertension type: essential hypertension Qualified Code(s): I10 - Essential (primary) hypertension (3) Hyperlipidemia Current visit: No Status: Acute Seems patient has home med of statin, however, his chart recorded he is allergic to statin. Will hold statin temporally, need pharmacy to further confirm the home medication Qualifiers: Hyperlipidemia type: unspecified Qualified Code(s): E78.5 - Hyperlipidemia , unspecified (4) Coronary artery disease Current visit: No Status: Acute Patient has a history of CAD. S/P stent. Continue aspirin, Plavix, beta yue. Hold statin and wait for pharmacy to further confirm home medications Qualifiers: Coronary Disease-Associated Artery/Lesion type: [place] artery [place] vs. transplanted heart: [place] heart Associated angina: angina presence unspecified Qualified Code(s): I25.10 - Atherosclerotic heart disease of [place] coronary artery without angina pectoris (5) DVT prophylaxis Current visit: No Status: Acute Patient is on heparin drip Internal Medicine - H&P: HPI Chief complaint: Chest pain Admitted From: Home Plans for Post Hospital Care: Home History of present illness: Mr. Silva is a 82 year old male with history of hypertension, CAD S/P stents, history of CVA, presented to emergency room for chest pain. Patient said that the pain started this morning and will wake him up from sleep. Pain is located on left side chest, pressure-like, radiated to left arm, left shoulder, and left jaw. Pain is constant, 7 out of 10. He denies shortness of breath, nausea , or diaphoresis. In emergency room, he was given nitroglycerin and his pain get down to 3-4 out of 10. Patient denies fever. He has a mild nonproductive chronic cough. In ER, patient was found elevated troponin to 0.08. He was admitted as NSTEMI. Past Med Surg Social Fam HX - Past Medical History Medical history: coronary artery disease, CVA, hyperlipidemia, hypertension, kidney stones, renal disease Psychiatric history: no psych history - Past Surgical History Surgical History: angioplasty/stent, sinus surgery, other - Social History Smoking Status: Never smoker Smokeless Tobacco Status: No Alcohol use: none Drug use: none - Family History Mother History Unknown: Yes Internal Medicine - H&P: Meds Aspirin 81 mg PO DAILY PRN 04/20/16 [History] Cholecalciferol (D-3) [Vitamin D] 2,000 unit PO DAILY 04/20/16 [History] Clopidogrel [Plavix] 75 mg PO DAILY 04/20/16 [History] Cyanocobalamin (B-12) [Vitamin B12] 1,000 mcg PO DAILY 04/20/16 [History] Fluticasone Propionate Nasal [Flonase] 1 spray NS BID 04/20/16 [History] Furosemide [Lasix] 20 - 30 mg PO DAILY 04/20/16 [History] Ipratropium [place] 1 spray NS BID 04/20/16 [History] L. Acidophilus/Pectin, [place] [Acidophilus Probiotic Capsule] 1 cap PO DAILY [History] Losartan Potassium [Cozaar] 100 mg PO DAILY 04/20/16 [History] Magnesium 250 mg PO DAILY 04/20/16 [History] Nitroglycerin [Nitrostat] 0.4 mg SL Q5M PRN 04/20/16 [History] Oregano Oil [Oil of Oregano] 1,500 mg PO DAILY 04/20/16 [History] Vitamin E (Dl,Tocopheryl Acet) [Vitamin E] 100 unit PO DAILY 04/20/16 [History] Atorvastatin [Lipitor] 40 mg PO HS 09/25/17 [History] Fish Oil/Borage/Flax/Om3,6,9#1 [[place] 3-6-9 1,200 mg Softgel] 1,200 mg PO DAILY 09/25/17 [History] Hydralazine HCl 50 mg PO TID 09/25/17 [History] Vitamin O 2.5 ml PO BID 09/25/17 [History] Carvedilol [Coreg] 6.25 mg PO BIDWM #60 tablet 09/26/17 [Rx] 3 Allergy/AdvReac Type Severity Reaction Status Date / Time Dicloxacillin Allergy Swelling Verified 04/20/16 09:46 of Lip/Tongue/Throat nifedipine Allergy See Verified 04/20/16 09:46 Comments quinine Allergy See Verified 04/20/16 09:46 Comments Xuxhrac-Mrn-Ryx Reductase Allergy See Verified 04/20/16 09:46 Inhibitor Comments [Statins] Sulfa (Sulfonamide Allergy See Verified 04/20/16 09:46 Antibiotics) Comments JUDITH Inhibitors AdvReac Cough Verified 04/20/16 09:46 All Systems PM: A 10-system review of systems was performed and is negative for pertinent findings except as documented above in the HPI. - Constitutional Vitals: Temp Pulse Resp BP Pulse Ox 99 F 105 18 139/91 94 10/10/17 02:50 10/10/17 05:06 10/10/17 05:06 10/10/17 05:06 10/10/17 05:06 General appearance: Present: A&O X 3, no acute distress, answers questions appropriately - Head Head exam: Present: atraumatic, normocephalic - Eye Eye exam: Present: PERRL, conjuntiva pink, sclera anicteric Pupils: Present: PERRL - Neck Neck exam general surgery: Present: supple, trachea midline. Absent: lymphadenopathy - Respiratory Respiratory exam: Present: CTAB. Absent: accessory muscle use, rales, rhonchi, wheezes - Cardiovascular Cardiovascular exam: Present: RRR, +S1, +S2. Absent: diastolic murmur, gallop, rubs, systolic murmur - GI/Abdominal GI/Abdominal exam: Present: normal bowel sounds, soft, no peritoneal signs. Absent: distended, tenderness - Extremities Exam Extremities exam: Present: warm, radial pulses palpable and symmetrical. Absent : calf tenderness, cyanotic, pedal edema - Neurological Exam Neurological exam: Present: CN II-XII intact, oriented X3, no focal deficits. Absent: pronater drift, facial droop, speech deficit - Skin Skin exam: Present: dry, intact Internal Med - H&P Results - Labs CBC & Chem 7: 10/10/17 02:55 10/10/17 02:55 Labs: Short CBC 10/10/17 Range/Units 02:55 WBC 9.2 (4.3-11.1) K/mcL Hgb 13.4 (12.9-16.9) g/dL Hct 40.7 (37.5-50.1) % Plt Count 223 (140-400) K/mcL Neutrophils # 7.4 (1.6-8.9) K/mcL BMP 10/10/17 02:55 Sodium 140 Potassium 3.8 Chloride 103 Carbon Dioxide 26 BUN 19 Creatinine 1.19 Glucose 101 Calcium 9.8 Cardiac Enzymes 10/10/17 Range/Units 02:55 Troponin I 0.08 H* (< 0.04) ng/mL - EKG Data -: EKG Interpreted by Myself EKG shows normal: sinus rhythm Rate: tachycardia - Impressions ITS Impressions Chest X-Ray 10/10/17 03:05 IMPRESSION: Negative portable chest. D/ / Edy Grace MD / Edy Grace MD Interpreting Provider: Edy Grace MD
[2017-10-10] MEDS: hydrALAZINE 25 MG TABLET PO SCH ×3 (10:05→21:12)
--- NOTE | 2017-10-10 12:55 | Event Note ---
<Jeremy William - Last Filed: 10/10/17 13:16> Date of Encounter: 10/10/17 Time of Encounter: 08:55 Mr. Silva is a 82 year old male, admitted for NSTEMI. PMH of hypertension, CAD S/P stents, history of CVA, presented to emergency room for chest pain. Patient said that the pain awoke him from sleep this morning. Patient notes pain started in the left shoulder and back, radiating up his left side of neck. Patient found to have elevated Troponin of 0.08 in the ED. Patient started on Nitro drip and Heparin drip per ACS protocol. Patient notes some shortness of breath with initial presentation, but denies any chest pain or shortness of breath currently. Patient notes extensive CVD hx with 6 previous stents. Home medications included ASA, lasix, SL nitro, Plavix, losartan, and coreg. Notes there have been discussion of stress test in the past, but that he never completed testing. Of note, patient states his HTN meds were recently adjusted last week by PCP, patient states "my bottom number was still high". Diastolic elevated in the room with BP 112/98 currently. Patient states his diastolic BP at home was 65 when he checked it. PE: General-no acute distress, awake and alert, answers questions appropriately. HEENT- normocephalic, atraumatic, EOMI, conjunctivae pink, no rhinorrhea, neck supple. CV-RRR, no murmurs/rubs/gallops. Resp- CTAB, no wheezes /rales/rhonchi. GI- notes mild LLQ pain to palpation, no masses, nondistended, soft. Extremities- no edema, no erythema, nontender. Neuro- no focal deficits, alert, no speech deficits, no facial dropping. skin- dry and intact. A/P (1) NSTEMI (non-ST elevated myocardial infarction) Patient has a chest pain with left arm/shoulder/jaw radiation. Patient has history of CAD S/P stent. Patient generally has history of uncontrolled hypertension. EKG revealed no significant ST elevation. Consider NSTEMI. - Place patient on continuous cardiac monitoring - Trend troponins; 0.08>0.12>0.19 - Recent outpatient echo on 09/29/17 with EF of 55%, mild LV dysfunction, mild LV hypertrophy. - Low-dose heparin drip and nitro drip started from ER, will continue. - Currently NPO - Pending Cardiology eval, consult placed and when AM reached out cardio was aware of this patient from formulation scientist. (2) Hypertension Patient has history of uncontrolled hypertension. Previous H&P noted "kidney stent" (For renal artery stenosis?), however in talking to patient he notes issue with kidney stone and notes temporary ureter stent placed by Dr. Sagastume. Will continue home medications. Patient is also on NTG drip. Closely follow up vitals per protocol (3) Hyperlipidemia Seems patient has home med of statin, however, his chart recorded he is allergic to statin. Will hold statin temporally, need pharmacy to further confirm the home medication (4) Coronary artery disease Patient has a history of CAD. S/P stent. Continue aspirin, Plavix, beta yue. Hold statin and wait for pharmacy to further confirm home medications (5) DVT prophylaxis Patient is on heparin drip <Horace Woods - Last Filed: 10/10/17 18:31> Date of Encounter: 10/10/17 Pt was admitted earlier this AM with chest pain. He has been on heparin and nitro and evaluated by cardiology. Exam Alert and comfortable Agree with assessment and plan as above.
[2017-10-10] MEDS: *HR* Heparin 5,000 UNIT/ML VIAL IVP PRN (13:03)
--- NOTE | 2017-10-10 14:32 | Electrocardiograph Report ---
[employer] [facility] Date: 2017-10-10 Pat Name: Chase Silva Department: 102 Room: 2SH27 Gender: M Director Of Speech Pathology: Jessie : 1935 Requested By: Abimael Santa Order Number: [id number] Reading MD: Kasi Veloz MD Measurements Intervals [place] Rate: 99 P: 59 MA: 242 QRS: -46 QRSD: 107 T: 32 QT: 342 QTc: 399 Interpretive Statements SINUS RHYTHM WITH FIRST DEGREE AV BLOCK LEFT ANTERIOR FASCICULAR BLOCK [QRS AXIS <= -45, QR IN I, RS IN II] Electronically Signed On 10-10-2017 14:31:02 EST by Kasi Veloz MD
--- NOTE | 2017-10-10 17:10 | Cardiology Consult Note ---
<ChanceMelissa Luiz - Last Filed: 10/10/17 17:11> Date of Encounter: 10/10/17 Time of Encounter: 13:30 Assessment and Plan (1) Elevated troponin Current Visit: Yes Status: Acute Per cardiology: -Troponins 0.08, 0.12, 0.19, 0.15. Somewhat flat and adynamic in the setting of HTN. -TTE 09/2017 with LVEF 55%, no segmental wall motion abnormalities. -No acute ECG changes noted. -Reports chest pain that awoke him from sleeping. States different from previous angina. -ON heparin and nitro drip. ON asa, plavix beta blcoker. not on statin due to allergy. -CUrrently chest pain free. -Will repeat limited TTE. -Will make npo after for possible LHC in am. Patient would like to discuss with family regarding LHC. Will re-evaluate in am. (2) Dysuria Current Visit: Yes Status: Acute Per cardiology: -Reported dysuria and intermittent fevers at home. -management per primary service. (3) Coronary artery disease Current Visit: No Status: Acute Per cardiology: -Known history of CAD. -Last LHC 2012 with patent previous stents, moderate RCA disease. -On asa, plavix. beta yue. Not on statin due to allergy. -TTE as above. -STress 2013 negative for ischemia or infarct. -Will continue to montior. Qualifiers: Coronary Disease-Associated Artery/Lesion type: [place] artery [place] vs. transplanted heart: [place] heart Associated angina: angina presence unspecified Qualified Code(s): I25.10 - Atherosclerotic heart disease of [place] coronary artery without angina pectoris (4) Hypertension Current Visit: Yes Status: Acute Per cardiology: -Known HTN. -Reports uncontrolled HTN recently. -BP 160s on admission. -Currently controlled. -On nitro drip, beta yue, ARB, hydralazine. -Will continue to monitor. Qualifiers: Hypertension type: essential hypertension Qualified Code(s): I10 - Essential (primary) hypertension Discussion w patient/family: The assessment and plan as outlined above was discussed with the patient and/or family members who expressed understanding and agreement. All questions were answered. Thank you for involving us in the care of your patient. Please call with any questions. Discussed and reviewed with . History of Present Illness Consult date: 10/10/17 Requesting physician: Mac Monreal Consult reason: elevated troponin Chief complaint: chest pain History of present illness: Mr. Silva is a 82 year old male with a relevant past medical history of CAD s/ p PCI, HTN, hyperlipidemia, CVA. Patient presented to [facility] with complaints of chest pain. Patient reports chest pain woke him up from sleep. Patient states chest pain radaited to left shoulder and jaw. Denies exertional chest pain. Of note, reports symptoms prior to PCI were back pain. Reports some increased shortness of breath and icnreased fatigue. OF note, patient reports some fever and chills over the weekend. Also reports burning with urination. Denies current chest pain. Past Med Surg Social Fam HX - Past Medical History Attestation: Yes The following information was validated with the patient. Source: patient, old records reviewed, obtained from family Medical history: coronary artery disease, CVA, hyperlipidemia, hypertension, kidney stones, renal disease Psychiatric history: no psych history - Past Surgical History Surgical History: angioplasty/stent, sinus surgery, other - Social History Smoking Status: Never smoker Smokeless Tobacco Status: No Alcohol use: none Drug use: none - Family History Mother History Unknown: Yes Medications and Allergies Aspirin 81 mg PO DAILY PRN 04/20/16 [History] Cholecalciferol (D-3) [Vitamin D] 2,000 unit PO DAILY 04/20/16 [History] Clopidogrel [Plavix] 75 mg PO DAILY 04/20/16 [History] Cyanocobalamin (B-12) [Vitamin B12] 1,000 mcg PO DAILY 04/20/16 [History] Fluticasone Propionate Nasal [Flonase] 1 spray NS BID 04/20/16 [History] Furosemide [Lasix] 20 - 30 mg PO DAILY 04/20/16 [History] Ipratropium [place] 1 spray NS BID 04/20/16 [History] L. Acidophilus/Pectin, [place] [Acidophilus Probiotic Capsule] 1 cap PO DAILY [History] Losartan Potassium [Cozaar] 100 mg PO DAILY 04/20/16 [History] Magnesium 250 mg PO DAILY 04/20/16 [History] Nitroglycerin [Nitrostat] 0.4 mg SL Q5M PRN 04/20/16 [History] Oregano Oil [Oil of [place]regan[place]] 1,500 mg PO DAILY 04/20/16 [History] Vitamin E (Dl,Tocopheryl Acet) [Vitamin E] 100 unit PO DAILY 04/20/16 [History] Atorvastatin [Lipitor] 40 mg PO HS 09/25/17 [History] Fish Oil/Borage/Flax/Om3,6,9#1 [[place] 3-6-9 1,200 mg Softgel] 1,200 mg PO DAILY 09/25/17 [History] Hydralazine HCl 50 mg PO TID 09/25/17 [History] Vitamin O 2.5 ml PO BID 09/25/17 [History] Carvedilol [Coreg] 6.25 mg PO BIDWM #60 tablet 09/26/17 [Rx] 3 Allergy/AdvReac Type Severity Reaction Status Date / Time Dicloxacillin Allergy Swelling Verified 04/20/16 09:46 of Lip/Tongue/Throat nifedipine Allergy See Verified 04/20/16 09:46 Comments quinine Allergy See Verified 04/20/16 09:46 Comments Nhrrvbs-Bkk-Wzv Reductase Allergy See Verified 04/20/16 09:46 Inhibitor Comments [Statins] Sulfa (Sulfonamide Allergy See Verified 04/20/16 09:46 Antibiotics) Comments JUDITH Inhibitors AdvReac Cough Verified 04/20/16 09:46 All Systems Review: The remainder of the systems were reviewed and are negative - Constitutional Constitutional: chills, fatigue, fever(s) - Cardiovascular Cardiovascular: as per HPI, chest pain at rest, dyspnea on exertion - Genitourinary Genitourinary: dysuria Physical Examination Vital Signs, Last 4 Hours Temp Pulse Resp BP Pulse Ox 10/10/17 14:35 99.4 F 82 17 118/81 94 General: Conversant, No Apparent Distress HEENT: Atraumatic, Normocephaly, Mucus Membranes Moist Neck: No JVD, Normal carotid pulses Cardiac: Reg Rate and Rhythm, Normal S1 and S2, No Murmur Lungs: Normal Breath Sounds, No Wheeze, Rales, Rhonchi Neuro: Alert and responsive, No focal deficits noted Abdomen: Soft, Non-Tender Skin: No rashes noted on visualized skin Musculoskeletal: No Chest Wall Tenderness Extremities: No Clubbing, No Cyanosis, No Edema, Normal Pulses Results 10/10/17 02:55 10/10/17 02:55 Lab Results Impressions Chest X-Ray 10/10/17 03:05 IMPRESSION: Negative portable chest. D/ / Eyd Grace MD / Edy Grace MD Interpreting Provider: Edy Grace MD Active Medications Acetaminophen (Tylenol) 650 mg PO Q6HR PRN PRN Reason: Mild Pain/Fever Stop: 04/11/18 05:26 Aspirin (Aspirin) 81 mg PO DAILY PRN PRN Reason: Pain Stop: 04/11/18 05:29 Carvedilol (Coreg) 6.25 mg PO BIDWM BRUNO PRN Reason: Protocol Stop: 04/11/18 08:01 Last Admin: 10/10/17 16:37 Dose: 6.25 mg Clopidogrel Bisulfate (Plavix) 75 mg PO DAILY BRUNO Stop: 04/11/18 09:01 Last Admin: 10/10/17 10:04 Dose: 75 mg Heparin Sodium (Porcine) (Heparin) 4,000 unit IVP Q6HR PRN PRN Reason: SEE COMMENTS Stop: 04/11/18 04:42 Heparin Sodium (Porcine) (Heparin) 2,000 unit IVP Q6H PRN PRN Reason: SEE COMMENTS Stop: 04/11/18 04:42 Last Admin: 10/10/17 13:03 Dose: 2,000 unit Hydralazine HCl (Hydralazine) 50 mg PO TID BRUNO Stop: 04/11/18 09:01 Last Admin: 10/10/17 16:37 Dose: 50 mg Nitroglycerin (Nitroglycerin Premix 25 Mg/250 Ml) 25 mg in 250 mls @ 3 mls/hr IVC .Q24H BRUNO; 5 MCG/MIN PRN Reason: Protocol Stop: 04/11/18 04:46 Last Admin: 10/10/17 04:54 Dose: 5 mcg/min, 3 mls/hr Heparin Sodium/Dextrose (Heparin 25,000 Unit/500 Ml D5w) 25,000 unit in 500 mls @ 19.595 mls/hr IVC .Q24H BRUNO; 12 UNIT/KG/HR PRN Reason: Protocol Stop: 04/11/18 04:46 Last Titration: 10/10/17 13:05 Dose: 13.77 unit/kg/hr, 22.5 mls/hr Losartan Potassium (Cozaar) 100 mg PO DAILY BRUNO Stop: 04/11/18 09:01 Last Admin: 10/10/17 10:05 Dose: 100 mg Naloxone HCl (Narcan) 0.4 mg IVP Q2MIN PRN PRN Reason: SEE COMMENTS Stop: 04/11/18 05:26 Laboratory Tests 10/10/17 10/10/17 10/10/17 02:55 02:55 05:43 Hgb 13.4 Creatinine 1.19 Troponin I 0.08 H* 0.12 H* 10/10/17 11:23 Hgb Creatinine Troponin I 0.19 H* - Imaging and Cardiology Chest Xray: report reviewed Stress Test: report reviewed Echo: report reviewed Cardiac cath: report reviewed - EKG Interpretation EKG results cardiology: personally reviewed (ECG with SR.) Consult Discharge Plan - Plan Referrals: Santiago Weaver DO [Primary Care Provider] - <Alethea Mariscal - Last Filed: 10/10/17 17:44> Date of Encounter: 10/10/17 - Attending Attestation I examined this patient and my medical decision-making was reviewed with the VESSEL CAPTAIN. I agree with the documented findings, disposition and treatment plan as described. Mr. Silva presents with atypical chest pain which appears to have woken the patient from sleep. Upon presentation, troponins noted to be elevated peak at 0.19. Renal function normal. Notably hypertensive upon admission. He does describe symptoms of fevers and chills over the weekend. So far, low grade temperatures are noted. CXR is clear. No leukocytosis. He has known CAD with moderate residual disease by [facility] in 2013. We discussed consideration for C. The R/B/A of the procedure were discussed with the patient including but not limited to serious complications such as , stroke, [place], bleeding, risk with anesthesia, JERMAINE, need for emergent surgery. The patient expressed understanding of the potential risks. He would like to discuss with family before proceeding. Await echo. Continue antiplatelet agents, BB. Patient not on statin due to allergy. Assessment and Plan Discussion w patient/family: The assessment and plan as outlined above was discussed with the patient and/or family members who expressed understanding and agreement. All questions were answered. Thank you for involving us in the care of your patient. Please call with any questions. History of Present Illness History of present illness: Mr. Silva is a 82 year old male All Systems Review: The remainder of the systems were reviewed and are negative Physical Examination Vital Signs, Last 4 Hours Temp Pulse Resp BP Pulse Ox 10/10/17 14:35 99.4 F 82 17 118/81 94 Results 10/10/17 02:55 10/10/17 02:55 Lab Results 10/10/17 10/10/17 10/10/17 11:23 11:23 16:37 APTT 53.1 H D Troponin I 0.19 H* 0.15 H*
[2017-10-11 03:22] LABS: Basophils % 0.4 %; Eosinophils # 0.1 K/mcL (0.0-0.6); Eosinophils % 2.1 %; Hematocrit 34.7 % (37.5-50.1); Hemoglobin 11.4 g/dL (12.9-16.9); Immature Granulocytes % 0.4 % (0-4); Lymphocytes # 0.6 K/mcL (0.6-4.6); Lymphocytes % 8.2 %; Mean Corpuscular HGB Conc 32.9 g/dL (31.6-35.5); Mean Corpuscular Hemoglobin 31.6 pg (28.0-33.3); Mean Corpuscular Volume 96.1 fL (83.0-100.0); Mean Platelet Volume 8.7 fL (9.4-12.4); Monocytes # 0.8 K/mcL (0.0-1.3); Monocytes % 11.4 %; Neutrophils # 5.2 K/mcL (1.6-8.9); Platelet Count 206 K/mcL (140-400); Red Blood Count 3.61 M/mcL (4.19-5.50); Red Cell Distribution Width 13.6 % (11.5-14.5); Segmented Neutrophils % 77.5 %
[2017-10-11 03:37] LABS: BUN/Creatinine Ratio 19 (6-26); Blood Urea Nitrogen 23 mg/dL (8-23); Calcium 8.9 mg/dL (8.6-10.3); Carbon Dioxide 26 mEq/L (23-29); Chloride 103 mEq/L (98-107); Chol/HDL Ratio 2.8 (0-4.9); Cholesterol 104 mg/dL (< 200); Glucose 123 mg/dL (70-105); HDL Cholesterol 37 mg/dL (40-59); LDL Cholesterol,Calculated 39 mg/dL (0-99); Osmolality,Calculated 289 (280-300); Potassium 3.5 mEq/L (3.5-5.1); Sodium 137 mEq/L (136-145); Triglycerides 140 mg/dL (< 150); eGFR For African Americans > 60 (> 60); eGFR For Non-African Americans 56 (> 60)
[2017-10-11] MEDS: *HR* Heparin 5,000 UNIT/ML VIAL IVP PRN (04:34)
[2017-10-11] MEDS: Heparin 25,000 UNIT/500 ML D5W 25,000 UNIT/500 ML BAG IVC SCH (05:05)
[2017-10-11] MEDS: hydrALAZINE 25 MG TABLET PO SCH ×3 (08:22→21:34)
--- NOTE | 2017-10-11 10:28 | Internal Med Progress Note ---
<Gayla Deckern - Last Filed: 10/11/17 12:54> Date of Encounter: 10/11/17 Time of Encounter: 10:26 - Assessment and plan (1) NSTEMI (non-ST elevated myocardial infarction) Current Visit: Yes Status: Acute Assessment and plan: Patient had reported chest pain with elevated troponin Troponins are trending downward Heparin has been stopped due to decreased hgb Patient was seen by cardiology. It is my understanding that they are recommending possible left heart catheter but ill wait due to the drop in the patients hgb They also recommended repeat limited TTE We will await further recommendations from cardiology (2) Coronary artery disease Current Visit: No Status: Acute Assessment and plan: Patient has known history of coronary artery disease Has had previous C with stent placement. Continue aspirin, Plavix and beta yue Statin has been added by cardiology Qualifiers: Coronary Disease-Associated Artery/Lesion type: [place] artery [place] vs. transplanted heart: [place] heart Associated angina: angina presence unspecified Qualified Code(s): I25.10 - Atherosclerotic heart disease of [place] coronary artery without angina pectoris (3) Elevated troponin Current Visit: Yes Status: Acute Assessment and plan: Patient has had elevated troponins that it peaked at 0.19 and have decreased to 0.15. Patient is currently chest pain-free. (4) Hyperlipidemia Current Visit: No Status: Acute Assessment and plan: Statin has been added by cardiology. Qualifiers: Hyperlipidemia type: unspecified Qualified Code(s): E78.5 - Hyperlipidemia , unspecified (5) Hypertension Current Visit: Yes Status: Acute Assessment and plan: Blood pressure is currently well-controlled Continue current medical management Patient is on a nitro drip Qualifiers: Hypertension type: essential hypertension Qualified Code(s): I10 - Essential (primary) hypertension (6) DVT prophylaxis Current Visit: No Status: Acute Assessment and plan: Heparin has been DC. SCD will be ordered. - Subjective Interval history: Patient states that he is feeling better and almost back to normal. Patient states that he denies any shortness of breath or chest pain at this time today. Overall the patient states that he has been feeling better. - Constitutional Vitals: Temp Pulse Resp BP Pulse Ox 98.1 F 75 15 121/70 97 10/11/17 07:24 10/11/17 07:24 10/11/17 07:24 10/11/17 07:24 10/11/17 07:24 General appearance: Present: A&O X 3, no acute distress, answers questions appropriately - Head Head exam: Present: atraumatic, normocephalic - Neck Neck exam general surgery: Present: full ROM, normal inspection, trachea midline - Respiratory Respiratory exam: Present: CTAB. Absent: accessory muscle use, rales, rhonchi, wheezes - Cardiovascular Cardiovascular exam: Present: RRR, +S1, +S2. Absent: diastolic murmur, gallop, rubs, systolic murmur - GI/Abdominal GI/Abdominal exam: Present: normal bowel sounds, soft, no peritoneal signs. Absent: distended, tenderness - Extremities Exam Extremities exam: Present: warm. Absent: pedal edema, tenderness - Neurological Exam Neurological exam: Present: alert, oriented X3, no focal deficits. Absent: facial droop, speech deficit - Psychiatric Psychiatric exam: Present: normal affect, normal mood - Skin Skin exam: Present: dry, intact, warm Internal Medicine: Result - Labs CBC & Chem 7: 10/11/17 02:37 10/11/17 02:37 Labs: Short CBC 10/11/17 Range/Units 02:37 WBC 6.7 (4.3-11.1) K/mcL Hgb 11.4 L D (12.9-16.9) g/dL Hct 34.7 L (37.5-50.1) % Plt Count 206 (140-400) K/mcL Neutrophils # 5.2 (1.6-8.9) K/mcL BMP 10/11/17 02:37 Sodium 137 Potassium 3.5 Chloride 103 Carbon Dioxide 26 BUN 23 Creatinine 1.23 Glucose 123 H Calcium 8.9 Cardiac Enzymes 10/10/17 10/10/17 Range/Units 11:23 16:37 Troponin I 0.19 H* 0.15 H* (< 0.04) ng/mL - ABG Interpretation ABG results: PT/INR, D-dimer PT 10.9 Seconds (9.4-12.1) 10/10/17 02:55 Consult Discharge Plan - Plan Referrals: Santiago Weaver DO [Primary Care Provider] - 10/18/17 1:30 pm <Horace Woods - Last Filed: 10/11/17 18:20> Date of Encounter: 10/11/17 - Assessment and plan (1) NSTEMI (non-ST elevated myocardial infarction) Current Visit: Yes Status: Acute (2) Anemia Current Visit: Yes Status: Acute Qualifiers: Anemia type: unspecified type Qualified Code(s): D64.9 - Anemia, unspecified (3) Hypertension Current Visit: Yes Status: Acute Qualifiers: Hypertension type: essential hypertension Qualified Code(s): I10 - Essential (primary) hypertension (4) Coronary artery disease Current Visit: No Status: Acute Qualifiers: Coronary Disease-Associated Artery/Lesion type: [place] artery [place] vs. transplanted heart: [place] heart Associated angina: without angina Qualified Code(s): I25.10 - Atherosclerotic heart disease of [place] coronary artery without angina pectoris (5) Hyperlipidemia Current Visit: No Status: Acute Qualifiers: Hyperlipidemia type: mixed hyperlipidemia Qualified Code(s): E78.2 - Mixed hyperlipidemia (6) Renal mass Current Visit: Yes Status: Chronic - Constitutional Vitals: Temp Pulse Resp BP Pulse Ox 97.9 F 81 15 112/80 94 10/11/17 15:35 10/11/17 15:35 10/11/17 15:35 10/11/17 15:35 10/11/17 15:35 Internal Medicine: Result - Labs CBC & Chem 7: 10/11/17 02:37 10/11/17 02:37 Labs: Short CBC 10/11/17 Range/Units 02:37 WBC 6.7 (4.3-11.1) K/mcL Hgb 11.4 L D (12.9-16.9) g/dL Hct 34.7 L (37.5-50.1) % Plt Count 206 (140-400) K/mcL Neutrophils # 5.2 (1.6-8.9) K/mcL BMP 10/11/17 02:37 Sodium 137 Potassium 3.5 Chloride 103 Carbon Dioxide 26 BUN 23 Creatinine 1.23 Glucose 123 H Calcium 8.9 - ABG Interpretation ABG results: PT/INR, D-dimer PT 10.9 Seconds (9.4-12.1) 10/10/17 02:55 - Impressions Impressions Abdomen/Pelvis CTA 10/11/17 14:30 IMPRESSION: 1. Coronary and aortic atherosclerosis. No aortic aneurysm or dissection. 2. No acute pulmonary emboli. 3. Trace bilateral pleural effusions with patchy bilateral lower lobe changes which may represent atelectasis or possible developing pneumonia. 4. Indeterminate 1.5 cm focal nodule of the right lower lobe. This could represent subsegmental atelectasis versus developing pneumonia. A neoplasm cannot be excluded. Indeterminate mediastinal and right hilar lymphadenopathy. A follow-up CT thorax with contrast is recommended in 1-2 months following resolution of the acute symptoms to re-evaluate the right lower lobe nodular finding. 5. Bilateral symmetric renal atrophy related to renal atherosclerotic changes. There are numerous bilateral simple renal cysts. At the left kidney superior pole there is a 1.6 cm exophytic hyperdense mass which demonstrates postcontrast enhancement concerning for primary renal neoplasm. Recommend urologic consultation. 6. Bilateral nonobstructing nephrolithiasis. 7. Redemonstration of significant prostatomegaly with evidence of bladder outlet obstruction and multiple subcentimeter bladder diverticula. 8. No acute abdominal/pelvic process. Stable anterior hepatic cysts versus cavernous hemangioma. 9. No acute osseous abnormality or blastic findings to suggest prostatic metastatic disease. D/ / 10/11/2017 15:25:50 Андрей Lazo MD / remi Interpreting Provider: Андрей Lazo MD Chest CTA 10/11/17 14:30 IMPRESSION: 1. Coronary and aortic atherosclerosis. No aortic aneurysm or dissection. 2. No acute pulmonary emboli. 3. Trace bilateral pleural effusions with patchy bilateral lower lobe changes which may represent atelectasis or possible developing pneumonia. 4. Indeterminate 1.5 cm focal nodule of the right lower lobe. This could represent subsegmental atelectasis versus developing pneumonia. A neoplasm cannot be excluded. Indeterminate mediastinal and right hilar lymphadenopathy. A follow-up CT thorax with contrast is recommended in 1-2 months following resolution of the acute symptoms to re-evaluate the right lower lobe nodular finding. 5. Bilateral symmetric renal atrophy related to renal atherosclerotic changes. There are numerous bilateral simple renal cysts. At the left kidney superior pole there is a 1.6 cm exophytic hyperdense mass which demonstrates postcontrast enhancement concerning for primary renal neoplasm. Recommend urologic consultation. 6. Bilateral nonobstructing nephrolithiasis. 7. Redemonstration of significant prostatomegaly with evidence of bladder outlet obstruction and multiple subcentimeter bladder diverticula. 8. No acute abdominal/pelvic process. Stable anterior hepatic cysts versus cavernous hemangioma. 9. No acute osseous abnormality or blastic findings to suggest prostatic metastatic disease. D/ / 10/11/2017 15:25:50 Андрей Lazo MD / remi Interpreting Provider: Андрей Lazo MD Echocardiogram Limited Views 10/11/17 15:05 Impressions: LVEF 50-55%. Normal LV chamber size and function. Left Ventricular Wall Motion: Rest Echo Findings All wall segments showed normal motion. Findings: Study Quality * Technically adequate exam. ECG Findings * Normal sinus rhythm. Left Ventricle * LVEF 50-55%. * Normal LV chamber size and function. Right Ventricle * Normal right ventricular structure and function. Aorta * Normally sized aortic root. Pericardium * The pericardium appears normal. IVC * Normal IVC dimensions and inspiratory collapse. - Attending Attestation I examined this patient and my medical decision-making was reviewed with the Resident Physician on 10/11/17. I agree with the documented findings, disposition and treatment plan as described except to the extent set forth below. Mr Silva is currently admitted for acute NSTEMI. He remains moderate to high risk due to potential for worsening clinical status. Mr Silva has no further pain. He is complaining of cold feet. No fever or chills. Hemoglobin has decreased so heparin stopped. Exam alert Comfortable Mucus membranes dry Heart reg No wheeze Abd soft I/P 1. NSTEMI 2. Renal mass - urology input appreciated Further diagnoses and plan as above.
--- NOTE | 2017-10-11 10:56 | Cardiology Progress Note ---
Date of Encounter: 10/11/17 Time of Encounter: 10:00 Assessment and Plan (1) Elevated troponin Current Visit: Yes Status: Acute Per cardiology: -Troponins 0.08, 0.12, 0.19, 0.15. Somewhat flat and adynamic in the setting of HTN. -TTE 09/2017 with LVEF 55%, no segmental wall motion abnormalities. -No acute ECG changes noted. -Reports chest pain that awoke him from sleeping. States different from previous angina. -ON heparin and nitro drip. ON asa, plavix beta blcoker. Upon further review, was statin lipitor in outpatient setting. -CUrrently chest pain free. -Do not suspect NSTEMI at this time. NO cardiac rehab warranted. -TTE pending. -Statin added. -Would recommend ischemic evaluation this admission, however hemoglobin dropped 2gm overnight on heparin drip. Heparin drip stopped. Will await anemia work up prior to ischemic eval. -Of note, patient reports he is not sure if he would be willing to undergo another LHC, states he is still waiting to discuss with his family. -Will continue to monitor. (2) Dysuria Current Visit: Yes Status: Acute Per cardiology: -Reported dysuria and intermittent fevers at home. -management per primary service. (3) Coronary artery disease Current Visit: No Status: Acute Per cardiology: -Known history of CAD. -Last LHC 2012 with patent previous stents, moderate RCA disease. -On asa, plavix. beta yue, statin. -TTE as above. -STress 2013 negative for ischemia or infarct. -Will continue to montior. Qualifiers: Coronary Disease-Associated Artery/Lesion type: [place] artery [place] vs. transplanted heart: [place] heart Associated angina: angina presence unspecified Qualified Code(s): I25.10 - Atherosclerotic heart disease of [place] coronary artery without angina pectoris (4) Hypertension Current Visit: Yes Status: Acute Per cardiology: -Known HTN. -Reports uncontrolled HTN recently. -BP 160s on admission. -Currently controlled. -On nitro drip, beta yue, ARB, hydralazine. -Will continue to monitor. Qualifiers: Hypertension type: essential hypertension Qualified Code(s): I10 - Essential (primary) hypertension (5) Anemia Current Visit: Yes Status: Acute Per cardiology: -Hemoglobin 13.4 on admission, today 11.4 -Baseline 12.5-13's -Heparin drip stopped. -Management per primary service. Qualifiers: Anemia type: unspecified type Qualified Code(s): D64.9 - Anemia, unspecified Discussion w patient/family: The assessment and plan as outlined above was discussed with the patient who expressed understanding and agreement. All questions were answered. Thank you for involving us in the care of your patient. Please call with any questions. Discussed and reviewed with . Subjective Principal diagnosis: Chest pain, elevated troponin Interval history: Patient denies chest pain overnight. States he feels somewhat better today. Reports nasal congestion this morning. Objective Vital Signs, Last 4 Hours Temp Pulse Resp BP Pulse Ox 10/11/17 07:24 98.1 F 75 15 121/70 97 General: Conversant, No Apparent Distress HEENT: Atraumatic, Normocephaly, Mucus Membranes Moist Neck: No JVD, Normal carotid pulses Cardiac: Reg Rate and Rhythm, Normal S1 and S2, No Murmur Lungs: Normal Breath Sounds, No Wheeze, Rales, Rhonchi Neuro: Alert and responsive, No focal deficits noted Abdomen: Soft, Non-Tender Skin: No rashes noted on visualized skin Musculoskeletal: No Chest Wall Tenderness Extremities: No Clubbing, No Cyanosis, No Edema, Normal Pulses Results 10/11/17 02:37 10/11/17 02:37 Lab Results Active Medications Acetaminophen (Tylenol) 650 mg PO Q6HR PRN PRN Reason: Mild Pain/Fever Stop: 04/11/18 05:26 Aspirin (Aspirin) 81 mg PO DAILY PRN PRN Reason: Pain Stop: 04/11/18 05:29 Atorvastatin Calcium (Lipitor) 40 mg PO HS [facility] Stop: 04/12/18 21:01 Carvedilol (Coreg) 6.25 mg PO BIDWM [facility] PRN Reason: Protocol Stop: 04/11/18 08:01 Last Admin: 10/11/17 08:22 Dose: 6.25 mg Clopidogrel Bisulfate (Plavix) 75 mg PO DAILY BRUNO Stop: 04/11/18 09:01 Last Admin: 10/11/17 08:22 Dose: 75 mg Hydralazine HCl (Hydralazine) 50 mg PO TID BRUNO Stop: 04/11/18 09:01 Last Admin: 10/11/17 08:22 Dose: 50 mg Nitroglycerin (Nitroglycerin Premix 25 Mg/250 Ml) 25 mg in 250 mls @ 3 mls/hr IVC .Q24H BRUNO; 5 MCG/MIN PRN Reason: Protocol Stop: 04/11/18 04:46 Last Admin: 10/10/17 04:54 Dose: 5 mcg/min, 3 mls/hr Losartan Potassium (Cozaar) 100 mg PO DAILY BRUNO Stop: 04/11/18 09:01 Last Admin: 10/11/17 08:22 Dose: 100 mg Naloxone HCl (Narcan) 0.4 mg IVP Q2MIN PRN PRN Reason: SEE COMMENTS Stop: 04/11/18 05:26 Laboratory Tests 10/10/17 10/10/17 10/10/17 02:55 02:55 05:43 Hgb 13.4 Creatinine Troponin I 0.08 H* 0.12 H* 10/10/17 10/10/17 10/11/17 11:23 16:37 02:37 Hgb 11.4 L D Creatinine Troponin I 0.19 H* 0.15 H* 10/11/17 02:37 Hgb Creatinine 1.23 Troponin I - Imaging and Cardiology Chest Xray: report reviewed Stress Test: report reviewed Echo: pending, report reviewed Cardiac cath: report reviewed - EKG Interpretation EKG results cardiology: other (Telemetry reviewed with average HR previous 12 hours noted to be 79, SR. PACs noted.) Consult Discharge Plan - Plan Referrals: Santiago Weaver DO [Primary Care Provider] - 10/18/17 1:30 pm
--- NOTE | 2017-10-11 15:47 | Event Note ---
Date of Encounter: 10/11/17 Time of Encounter: 15:45 - Cardiology Event Note Patient hesistant to proceed with LHC. In light of CT abdomen findings, with LVEF preserved no wall motion abnormalities. Recommend medical management at this time. Cardiology will sign off and will follow in outpatient setting. Follow up set.
[2017-10-11 18:26] LABS: Hematocrit 37.5 % (37.5-50.1); Hemoglobin 12.3 g/dL (12.9-16.9)
--- NOTE | 2017-10-11 18:34 | Urology - Consult Note ---
Date of Encounter: 10/11/17 Time of Encounter: 18:32 - Assessment and Plan (1) Renal mass Current Visit: Yes Status: Chronic Assessment and plan: 82-year-old man with a small left renal mass. No surgical intervention is necessary at this time. I will have him follow up in the office for further discussion. I briefly discussed observation, biopsy, cryoablation, and partial nephrectomy. We will arrange follow-up. Urology CN:HPI Consult date: 10/11/17 Reason for consult Urology: Other (Left renal mass) Requesting physician: Horace Woods History of present illness: 82-year-old man was admitted for chest pain. In workup a CT scan of the chest, abdomen and pelvis was obtained with IV contrast. This showed concern for a 1.6 cm left upper pole renal mass which was exophytic. There was contrast enhancement. I was counseled at to assess the patient regarding this mass. He denies any history of flank pain. He denies any hematuria. Past Med Surg Social Fam HX - Past Medical History Medical history: coronary artery disease, CVA, hyperlipidemia, hypertension, kidney stones, renal disease Psychiatric history: no psych history - Past Surgical History Surgical History: angioplasty/stent, sinus surgery, other - Social History Smoking Status: Never smoker Smokeless Tobacco Status: No Alcohol use: none Drug use: none - Family History Mother History Unknown: Yes Medications and Allergies Aspirin 81 mg PO DAILY PRN 04/20/16 [History] Cholecalciferol (D-3) [Vitamin D] 2,000 unit PO DAILY 04/20/16 [History] Clopidogrel [Plavix] 75 mg PO DAILY 04/20/16 [History] Cyanocobalamin (B-12) [Vitamin B12] 1,000 mcg PO DAILY 04/20/16 [History] Fluticasone Propionate Nasal [Flonase] 1 spray NS BID 04/20/16 [History] Furosemide [Lasix] 20 - 30 mg PO DAILY 04/20/16 [History] Ipratropium [place] 1 spray NS BID 04/20/16 [History] L. Acidophilus/Pectin, [place] [Acidophilus Probiotic Capsule] 1 cap PO DAILY [History] Losartan Potassium [Cozaar] 100 mg PO DAILY 04/20/16 [History] Magnesium 250 mg PO DAILY 04/20/16 [History] Nitroglycerin [Nitrostat] 0.4 mg SL Q5M PRN 04/20/16 [History] Oregano Oil [Oil of Oregano] 1,500 mg PO DAILY 04/20/16 [History] Vitamin E (Dl,Tocopheryl Acet) [Vitamin E] 100 unit PO DAILY 04/20/16 [History] Atorvastatin [Lipitor] 40 mg PO HS 09/25/17 [History] Fish Oil/Borage/Flax/Om3,6,9#1 [[place] 3-6-9 1,200 mg Softgel] 1,200 mg PO DAILY 09/25/17 [History] Hydralazine HCl 50 mg PO TID 09/25/17 [History] Vitamin O 2.5 ml PO BID 09/25/17 [History] Carvedilol [Coreg] 6.25 mg PO BIDWM #60 tablet 09/26/17 [Rx] 3 Allergy/AdvReac Type Severity Reaction Status Date / Time Dicloxacillin Allergy Swelling Verified 04/20/16 09:46 of Lip/Tongue/Throat nifedipine Allergy See Verified 04/20/16 09:46 Comments quinine Allergy See Verified 04/20/16 09:46 Comments Eueqdrf-Fwe-Ish Reductase Allergy See Verified 04/20/16 09:46 Inhibitor Comments [Statins] Sulfa (Sulfonamide Allergy See Verified 04/20/16 09:46 Antibiotics) Comments JUDITH Inhibitors AdvReac Cough Verified 04/20/16 09:46 Review of Systems - Constitutional no chills, no fever(s) - EENT Nose, mouth and throat: no dizziness - Cardiovascular chest pain - Respiratory no dyspnea - Gastrointestinal no nausea, no vomiting - Genitourinary no flank pain, no hematuria - Musculoskeletal no back pain - Integumentary no erythema, no rash - Neurological no weakness - Psychiatric no suicidal ideation - Hematologic/Lymphatic no easy bleeding - Allergic/Immunologic no wheezing Exam Initial Vital Signs Temp Pulse Resp BP Pulse Ox 99 F 105 18 165/86 96 10/10/17 02:50 10/10/17 02:50 10/10/17 02:50 10/10/17 02:50 10/10/17 02:50 - General physical appearance Present: well developed, well nourished, no distress - Eyes Absent: icteric - ENT Present: normal mucosa - Neck Present: no masses - Respiratory Present: normal respiratory effort - Cardiovascular Cardiovascular exam IM: RRR - Abdomen Abdomen: Present: soft Urology Results - Labs 10/11/17 17:55 10/11/17 02:37 Abnormal lab results RBC 3.61 M/mcL (4.19-5.50) L 10/11/17 02:37 Hgb 12.3 g/dL (12.9-16.9) L 10/11/17 17:55 MPV 8.7 fL (9.4-12.4) L 10/11/17 02:37 Est GFR (Non-Af Amer) 56 (> 60) L 10/11/17 02:37 Glucose 123 mg/dL (70-105) H 10/11/17 02:37 POC Glucose 108 (58-89) H 10/10/17 12:01 Troponin I 0.15 ng/mL (< 0.04) H* 10/10/17 16:37 B-Natriuretic Peptide 332 pg/mL (Less than 100) H 10/10/17 02:55 HDL Cholesterol 37 mg/dL (40-59) L 10/11/17 02:37 Diabetes panel 10/11/17 Range/Units 02:37 Sodium 137 (136-145) mEq/L Potassium 3.5 (3.5-5.1) mEq/L Chloride 103 (98-107) mEq/L Carbon Dioxide 26 (23-29) mEq/L BUN 23 (8-23) mg/dL Creatinine 1.23 (0.70-1.30) mg/dL Glucose 123 H (70-105) mg/dL Calcium 8.9 (8.6-10.3) mg/dL Triglycerides 140 (< 150) mg/dL HDL Cholesterol 37 L (40-59) mg/dL Calcium panel 10/11/17 Range/Units 02:37 Calcium 8.9 (8.6-10.3) mg/dL Pituitary panel 10/11/17 Range/Units 02:37 Sodium 137 (136-145) mEq/L Potassium 3.5 (3.5-5.1) mEq/L Chloride 103 (98-107) mEq/L Carbon Dioxide 26 (23-29) mEq/L BUN 23 (8-23) mg/dL Creatinine 1.23 (0.70-1.30) mg/dL Glucose 123 H (70-105) mg/dL Calcium 8.9 (8.6-10.3) mg/dL Adrenal panel 10/11/17 Range/Units 02:37 Sodium 137 (136-145) mEq/L Potassium 3.5 (3.5-5.1) mEq/L Chloride 103 (98-107) mEq/L Carbon Dioxide 26 (23-29) mEq/L BUN 23 (8-23) mg/dL Creatinine 1.23 (0.70-1.30) mg/dL Glucose 123 H (70-105) mg/dL Calcium 8.9 (8.6-10.3) mg/dL All other labs normal. - Imaging CT scan - abdomen: report reviewed, image reviewed CT scan - pelvis: report reviewed, image reviewed Consult Discharge Plan - Plan Referrals: Santiago Weaver DO [Primary Care Provider] - 10/18/17 1:30 pm
--- NOTE | 2017-10-11 20:43 | Event Note ---
Date of Encounter: 10/11/17 Time of Encounter: 20:41 Was called this evening in regards to new A-fib rate control per telemetry and EKG. No known prior h/o A-fib. Is being followed by cardiology. He is currently on a heparin gtt and remains hemodynamically stable. No further changes in management at this time.
[2017-10-12 01:23] LABS: Basophils % 0.4 %; Eosinophils # 0.1 K/mcL (0.0-0.6); Eosinophils % 2.3 %; Immature Granulocytes % 0.4 % (0-4); Lymphocytes # 0.4 K/mcL (0.6-4.6); Lymphocytes % 8.3 %; Mean Corpuscular HGB Conc 33.5 g/dL (31.6-35.5); Mean Corpuscular Hemoglobin 32.1 pg (28.0-33.3); Mean Corpuscular Volume 95.7 fL (83.0-100.0); Mean Platelet Volume 8.4 fL (9.4-12.4); Monocytes # 0.6 K/mcL (0.0-1.3); Monocytes % 11.2 %; Platelet Count 192 K/mcL (140-400); Red Blood Count 3.24 M/mcL (4.19-5.50); Red Cell Distribution Width 13.5 % (11.5-14.5); Segmented Neutrophils % 77.4 %
[2017-10-12 01:28] LABS: Hemoglobin 10.4 g/dL (12.9-16.9)
[2017-10-12 01:48] LABS: Calcium 8.8 mg/dL (8.6-10.3); Potassium 3.5 mEq/L (3.5-5.1)
[2017-10-12] MEDS: hydrALAZINE 25 MG TABLET PO SCH ×3 (07:48→21:22)
--- NOTE | 2017-10-12 12:23 | Internal Med Progress Note ---
<Duane Decker - Last Filed: 10/12/17 13:59> Date of Encounter: 10/12/17 Time of Encounter: 12:20 - Assessment and plan (1) Anemia Current Visit: Yes Status: Acute Assessment and plan: Patient has an anemia of 10.4 after being on heparin Hgb has been waxing and waning. Patients baseline Hgb is 12-13. Stool occult has been ordered GI has been consulted. Qualifiers: Anemia type: unspecified type Qualified Code(s): D64.9 - Anemia, unspecified (2) New onset atrial fibrillation Current Visit: Yes Status: Acute Assessment and plan: Patient had an episode of atrial fibrillation last night No Known history of A fib per patient. However his sister states that she thinks he may have had it in the past. Back in sinus rhythm unable to start the patient on antiocagulation at this time due to decrease in hemoglobin (3) NSTEMI (non-ST elevated myocardial infarction) Current Visit: Yes Status: Acute Assessment and plan: Patient had reported chest pain with elevated troponin Troponins are trending downward Heparin has been stopped due to decreased hgb Echo showed preserved EF with no wall motion abnormalities No LHC at this time due to the changes on the patients hemoglobin, patient being hesitant on whether to have it done and recent CT findings being suggestive of a renal mass and a nodule in the lung. Cardiology has signed off. We will await further recommendations from cardiology (4) Coronary artery disease Current Visit: No Status: Acute Qualifiers: Coronary Disease-Associated Artery/Lesion type: [place] artery [place] vs. transplanted heart: [place] heart Associated angina: without angina Qualified Code(s): I25.10 - Atherosclerotic heart disease of [place] coronary artery without angina pectoris (5) Elevated troponin Current Visit: Yes Status: Acute (6) Renal mass Current Visit: Yes Status: Chronic Assessment and plan: Patient was found to have a renal mass on ct scan measuring 1.6 cm on the left kidney Urology has been consulted and has seen the patient They will follow this patient as an outpatient (7) Hyperlipidemia Current Visit: No Status: Acute Qualifiers: Hyperlipidemia type: mixed hyperlipidemia Qualified Code(s): E78.2 - Mixed hyperlipidemia (8) Hypertension Current Visit: Yes Status: Acute Qualifiers: Hypertension type: essential hypertension Qualified Code(s): I10 - Essential (primary) hypertension (9) DVT prophylaxis Current Visit: No Status: Acute - Subjective Interval history: Patient states that he is feeling like he is basically back to normal. Patient states that he denies any shortness of breath or chest pain at this time today. Overall the patient states that he has been feeling better. - Constitutional Vitals: Temp Pulse Resp BP Pulse Ox 98.3 F 74 15 109/64 94 10/12/17 11:00 10/12/17 11:00 10/12/17 11:00 10/12/17 11:00 10/12/17 11:00 General appearance: Present: A&O X 3, no acute distress, answers questions appropriately - Head Head exam: Present: atraumatic, normocephalic - Neck Neck exam general surgery: Present: full ROM, normal inspection, trachea midline - Respiratory Respiratory exam: Present: CTAB. Absent: accessory muscle use, rales, rhonchi, wheezes - Cardiovascular Cardiovascular exam: Present: RRR, +S1, +S2. Absent: diastolic murmur, gallop, rubs, systolic murmur - GI/Abdominal GI/Abdominal exam: Present: normal bowel sounds, soft, no peritoneal signs. Absent: distended, tenderness - Extremities Exam Extremities exam: Present: warm. Absent: pedal edema, tenderness - Neurological Exam Neurological exam: Present: altered, oriented X3, no focal deficits. Absent: facial droop, speech deficit - Psychiatric Psychiatric exam: Present: normal affect, normal mood - Skin Skin exam: Present: dry, intact, warm Internal Medicine: Result - Labs CBC & Chem 7: 10/12/17 01:12 10/12/17 01:12 Labs: Short CBC 10/11/17 10/12/17 Range/Units 17:55 01:12 WBC 5.2 (4.3-11.1) K/mcL Hgb 12.3 L 10.4 L D (12.9-16.9) g/dL Hct 37.5 31.0 L (37.5-50.1) % Plt Count 192 (140-400) K/mcL Neutrophils # 4.0 (1.6-8.9) K/mcL BMP 10/12/17 01:12 Sodium 141 Potassium 3.5 Chloride 107 Carbon Dioxide 26 BUN 33 H Creatinine 1.65 H Glucose 149 H Calcium 8.8 - ABG Interpretation ABG results: PT/INR, D-dimer PT 10.9 Seconds (9.4-12.1) 10/10/17 02:55 - Impressions Impressions Abdomen/Pelvis CTA 10/11/17 14:30 IMPRESSION: 1. Coronary and aortic atherosclerosis. No aortic aneurysm or dissection. 2. No acute pulmonary emboli. 3. Trace bilateral pleural effusions with patchy bilateral lower lobe changes which may represent atelectasis or possible developing pneumonia. 4. Indeterminate 1.5 cm focal nodule of the right lower lobe. This could represent subsegmental atelectasis versus developing pneumonia. A neoplasm cannot be excluded. Indeterminate mediastinal and right hilar lymphadenopathy. A follow-up CT thorax with contrast is recommended in 1-2 months following resolution of the acute symptoms to re-evaluate the right lower lobe nodular finding. 5. Bilateral symmetric renal atrophy related to renal atherosclerotic changes. There are numerous bilateral simple renal cysts. At the left kidney superior pole there is a 1.6 cm exophytic hyperdense mass which demonstrates postcontrast enhancement concerning for primary renal neoplasm. Recommend urologic consultation. 6. Bilateral nonobstructing nephrolithiasis. 7. Redemonstration of significant prostatomegaly with evidence of bladder outlet obstruction and multiple subcentimeter bladder diverticula. 8. No acute abdominal/pelvic process. Stable anterior hepatic cysts versus cavernous hemangioma. 9. No acute osseous abnormality or blastic findings to suggest prostatic metastatic disease. D/ / 10/11/2017 15:25:50 Андрей Lazo MD / farhat Interpreting Provider: Андрей Lazo MD Chest CTA 10/11/17 14:30 IMPRESSION: 1. Coronary and aortic atherosclerosis. No aortic aneurysm or dissection. 2. No acute pulmonary emboli. 3. Trace bilateral pleural effusions with patchy bilateral lower lobe changes which may represent atelectasis or possible developing pneumonia. 4. Indeterminate 1.5 cm focal nodule of the right lower lobe. This could represent subsegmental atelectasis versus developing pneumonia. A neoplasm cannot be excluded. Indeterminate mediastinal and right hilar lymphadenopathy. A follow-up CT thorax with contrast is recommended in 1-2 months following resolution of the acute symptoms to re-evaluate the right lower lobe nodular finding. 5. Bilateral symmetric renal atrophy related to renal atherosclerotic changes. There are numerous bilateral simple renal cysts. At the left kidney superior pole there is a 1.6 cm exophytic hyperdense mass which demonstrates postcontrast enhancement concerning for primary renal neoplasm. Recommend urologic consultation. 6. Bilateral nonobstructing nephrolithiasis. 7. Redemonstration of significant prostatomegaly with evidence of bladder outlet obstruction and multiple subcentimeter bladder diverticula. 8. No acute abdominal/pelvic process. Stable anterior hepatic cysts versus cavernous hemangioma. 9. No acute osseous abnormality or blastic findings to suggest prostatic metastatic disease. D/ / 10/11/2017 15:25:50 Андрей Lazo MD / remi Interpreting Provider: Андрей Lazo MD Echocardiogram Limited Views 10/11/17 15:05 Impressions: LVEF 50-55%. Normal LV chamber size and function. Left Ventricular Wall Motion: Rest Echo Findings All wall segments showed normal motion. Findings: Study Quality * Technically adequate exam. ECG Findings * Normal sinus rhythm. Left Ventricle * LVEF 50-55%. * Normal LV chamber size and function. Right Ventricle * Normal right ventricular structure and function. Aorta * Normally sized aortic root. Pericardium * The pericardium appears normal. IVC * Normal IVC dimensions and inspiratory collapse. Consult Discharge Plan - Plan Referrals: Santiago Weaver DO [Primary Care Provider] - 10/18/17 1:30 pm <Horace Woods - Last Filed: 10/12/17 18:39> Date of Encounter: 10/12/17 - Assessment and plan (1) Atrial fibrillation Current Visit: Yes Status: Chronic Qualifiers: Atrial fibrillation type: paroxysmal Qualified Code(s): I48.0 - Paroxysmal atrial fibrillation (2) NSTEMI (non-ST elevated myocardial infarction) Current Visit: Yes Status: Acute (3) Anemia Current Visit: Yes Status: Acute Qualifiers: Anemia type: unspecified type Qualified Code(s): D64.9 - Anemia, unspecified (4) Hypertension Current Visit: Yes Status: Acute Qualifiers: Hypertension type: essential hypertension Qualified Code(s): I10 - Essential (primary) hypertension (5) Coronary artery disease Current Visit: No Status: Acute Qualifiers: Coronary Disease-Associated Artery/Lesion type: [place] artery [place] vs. transplanted heart: [place] heart Associated angina: without angina Qualified Code(s): I25.10 - Atherosclerotic heart disease of [place] coronary artery without angina pectoris (6) Hyperlipidemia Current Visit: No Status: Acute Qualifiers: Hyperlipidemia type: mixed hyperlipidemia Qualified Code(s): E78.2 - Mixed hyperlipidemia (7) Renal mass Current Visit: Yes Status: Chronic - Constitutional Vitals: Temp Pulse Resp BP Pulse Ox 98.1 F 81 15 130/81 97 10/12/17 15:00 10/12/17 15:00 10/12/17 15:00 10/12/17 15:00 10/12/17 15:00 Internal Medicine: Result - Labs CBC & Chem 7: 10/12/17 01:12 10/12/17 01:12 Labs: Short CBC 10/12/17 Range/Units 01:12 WBC 5.2 (4.3-11.1) K/mcL Hgb 10.4 L D (12.9-16.9) g/dL Hct 31.0 L (37.5-50.1) % Plt Count 192 (140-400) K/mcL Neutrophils # 4.0 (1.6-8.9) K/mcL BMP 10/12/17 01:12 Sodium 141 Potassium 3.5 Chloride 107 Carbon Dioxide 26 BUN 33 H Creatinine 1.65 H Glucose 149 H Calcium 8.8 - ABG Interpretation ABG results: PT/INR, D-dimer PT 10.9 Seconds (9.4-12.1) 10/10/17 02:55 - Attending Attestation I examined this patient and my medical decision-making was reviewed with the Resident Physician on 10/12/17. I agree with the documented findings, disposition and treatment plan as described except to the extent set forth below. Mr Hernandez is currently admitted for acute NSTEMI. He has become anemic. He also has parox a fib. He remains moderate to high risk due to potential for worsening clinical status. Mr Hernandez feels OK. No overt bleeding noted. Had a fib last night - rate controlled. No chest pain or SOB. Exam alert Comfortable Mucus membranes dry Heart reg No wheeze Abd soft I/P 1. Anemia 2. NSTEMI 3. Parox a fib Further diagnoses and plan as above.
[2017-10-13 01:38] LABS: Basophils % 0.5 %; Eosinophils # 0.1 K/mcL (0.0-0.6); Eosinophils % 2.4 %; Hematocrit 30.4 % (37.5-50.1); Hemoglobin 10.1 g/dL (12.9-16.9); Immature Granulocytes % 0.5 % (0-4); Lymphocytes # 0.6 K/mcL (0.6-4.6); Lymphocytes % 9.8 %; Mean Corpuscular HGB Conc 33.2 g/dL (31.6-35.5); Mean Corpuscular Hemoglobin 32.3 pg (28.0-33.3); Mean Corpuscular Volume 97.1 fL (83.0-100.0); Mean Platelet Volume 8.7 fL (9.4-12.4); Monocytes # 0.6 K/mcL (0.0-1.3); Monocytes % 10.2 %; Neutrophils # 4.5 K/mcL (1.6-8.9); Platelet Count 210 K/mcL (140-400); Red Blood Count 3.13 M/mcL (4.19-5.50); Segmented Neutrophils % 76.6 %
[2017-10-13 01:52] LABS: Calcium 8.9 mg/dL (8.6-10.3); Potassium 3.8 mEq/L (3.5-5.1)
[2017-10-13] MEDS: hydrALAZINE 25 MG TABLET PO SCH ×2 (09:33→14:06)
[2017-10-13] MEDS ORDERED: *HR* FentaNYL (PF) 100 MCG/2 ML VIAL ONE (10:25)
[2017-10-13] MEDS ORDERED: *HR* Midazolam HCl 5 MG/5 ML VIAL IVP ONE (10:25)
[2017-10-13] MEDS ORDERED: *HR* FentaNYL (PF) 100 MCG/2 ML VIAL IVP ONE (10:36)
[2017-10-13] MEDS ORDERED: Tetracaine/Benzocaine/Butamben 200MG/SPRAY (100SPY/BOT) MM ONE (10:36)
[2017-10-13] MEDS ORDERED: *HR* Midazolam HCl 2 MG/2 ML VIAL IVP ONE (10:36)
[2017-10-13] MEDS ORDERED: Simethicone 40 MG/0.6 ML MLS IR ONE (10:36)
--- NOTE | 2017-10-13 10:38 | History & Physical Report ---
Date of Encounter: 10/13/17 Time of Encounter: 10:38 24 Hour HP Update - Instructions Instructions: If the History and Physical is less than 30 days old and was completed prior to A.M. admission and or procedure and has NOT been updated on calendar day of procedure please complete this update prior to performing procedure. - Update Patient reports changes in Medical Condition: No Changes in examination, assessment, or condition: No Changes in Medication: No Preop tests/diagnostics Reviewed: Yes Surgery Remains Indicated: Yes Consent for Planned Operative Procedure(s) Verified: Yes - Pre-Operative Checklist Preoperative Checklist Indicated: Yes Prophylactic Antibiotic Ordered: No Home Medications Include Beta Kiana: Yes
--- NOTE | 2017-10-13 10:39 | Pre-Sedation Evaluation ---
Pre-sedation evaluation - Pre-sedation checklist Date of procedure: 10/13/17 Procedure: egd Recent Vitals: Last Vital Signs Temp 97.9 F 10/13/17 10:33 Pulse 72 10/13/17 10:36 Resp 18 10/13/17 10:36 BP 112/66 10/13/17 10:36 Pulse Ox 97 10/13/17 10:36 H&P (including ROS) documented in medical record: Yes Previous reaction to sedatives/anesthetics: No Dietary Status: NPO after Midnight Dentition: No loose teeth or bridges Possible difficult airway: No ASA Classification *see protocol: CLASS III-Severe systemic disease
--- NOTE | 2017-10-13 10:44 | Gastroenterology Consult Note ---
<HaroRoman dawson Roberta - Last Filed: 10/13/17 10:42> Date of Encounter: 10/13/17 Time of Encounter: 09:50 - Assessment and plan (1) Anemia Status: Acute Assessment and plan: On admission Hgb 13.4 and has dropped over the past few days and is 10.1 this AM. His baseline Hgb is 12-13. Continue to monitor CBC and transfuse PRBC as needed. Plan for EGD today to r/o esophagitis, gastritis, duodenitis, PUD, MW tear, or AVM. Keep pt NPO. If EGD negative, consider colonoscopy. Qualifiers: Anemia type: unspecified type Qualified Code(s): D64.9 - Anemia, unspecified (2) Elevated troponin Status: Acute Assessment and plan: Do not suspect NSTEMI at this time per Cardiology. - Time Spent With Patient Total time spent is greater than 50% in coordination of care (as documented) at patient's floor/unit and/or counseling patient: GI History of Present Illness - Data of Consult Patient: new to practice Consult date: 10/13/17 Requesting Physician: Horace Woods DO - Consult Narrative Reason for consult: anemia History of present illness: Mr. Silva is a 82 year old male with PMHx of CAD s/p stents, CVA, HLD, HTN who presented to the ED with chest pain concerning for NSTEMI. We have been consulted to evaluate his anemia. On admission Hgb 13.4 and has dropped over the past few days and is 10.1 this AM. His baseline Hgb is 12-13. Fecal occult blood test has been ordered. Procedures: Colonoscopy 04/20/2016 Dr. Clifton: Melanosis in the colon. Colonoscopy 02/16/2015 Dr. Clifton: Internal hemorrhoids NSAIDs: ASA Anticoagulation: Plavix Past Med Surg Social Fam HX - Past Medical History Medical history: coronary artery disease, CVA, hyperlipidemia, hypertension, kidney stones, renal disease Psychiatric history: no psych history - Past Surgical History Surgical History: angioplasty/stent, sinus surgery, other - Social History Smoking Status: Never smoker Smokeless Tobacco Status: No Alcohol use: none Drug use: none - Family History Mother History Unknown: Yes - Gastrointestinal Gastrointestinal: Present: as per HPI - Constitutional Constitutional: as per HPI - EENT Eyes: as per HPI Ears: Present: as per HPI Nose, mouth and throat: Present: as per HPI - Cardiovascular Cardiovascular ROS: Present: as per HPI - Respiratory Respiratory IM: Present: as per HPI - Genitourinary Genitourinary: Absent: change in color, Urinary frequency - Neurological ROS Neurological GI: Present: as per HPI - Hematologic/Lymphatic Hematologic/Lymphatic pediatric: Present: as per HPI - Musculoskeletal Musculoskeletal ROS GI: Present: as per HPI - Integumentary Integumentary GI: Present: as per HPI - Psychiatric ROS Psychiatric GI: Present: as per HPI - Endocrine Endocrine IM: Present: as per HPI - Constitutional Vitals: Temp Pulse Resp BP Pulse Ox 97.9 F 72 18 112/66 97 10/13/17 10:33 10/13/17 10:36 10/13/17 10:36 10/13/17 10:36 10/13/17 10:36 General appearance: Present: cooperative, A&O X 3, no acute distress, answers questions appropriately - Head Head exam: Present: atraumatic, normocephalic - Eye Eye exam: Present: normal appearance, sclera anicteric - ENT ENT exam: Present: mucous membranes dry - Neck Neck exam general surgery: Present: normal inspection, trachea midline - Respiratory Respiratory exam: Present: decreased breath sounds, CTAB. Absent: rales, rhonchi - Cardiovascular Cardiovascular exam: Present: RRR, +S1, +S2 - GI/Abdominal GI/Abdominal exam: Present: soft, no peritoneal signs. Absent: distended, firm , guarding, tenderness - Rectal Rectal exam: Present: deferred - Extremities Exam Extremities exam: Present: warm - Neurological Exam Neurological exam: Present: no focal deficits - Psychiatric Psychiatric exam: Present: normal affect, normal mood - Skin Skin exam: Present: dry, intact, normal color, warm Results - Labs CBC & Chem 7: 10/13/17 01:05 10/13/17 01:05 Labs: Last Result Calcium 8.9 mg/dL (8.6-10.3) 10/13/17 01:05 Troponin I 0.15 ng/mL (< 0.04) H* 10/10/17 16:37 Triglycerides 140 mg/dL (< 150) 10/11/17 02:37 Entire Visit Hgb 10.1 g/dL (12.9-16.9) L 10/13/17 01:05 Hct 30.4 % (37.5-50.1) L 10/13/17 01:05 PT 10.9 Seconds (9.4-12.1) 10/10/17 02:55 - ABG ABG results: PT/INR, D-dimer PT 10.9 Seconds (9.4-12.1) 10/10/17 02:55 - Impressions Impressions Abdomen/Pelvis CTA 10/11/17 14:30 IMPRESSION: 1. Coronary and aortic atherosclerosis. No aortic aneurysm or dissection. 2. No acute pulmonary emboli. 3. Trace bilateral pleural effusions with patchy bilateral lower lobe changes which may represent atelectasis or possible developing pneumonia. 4. Indeterminate 1.5 cm focal nodule of the right lower lobe. This could represent subsegmental atelectasis versus developing pneumonia. A neoplasm cannot be excluded. Indeterminate mediastinal and right hilar lymphadenopathy. A follow-up CT thorax with contrast is recommended in 1-2 months following resolution of the acute symptoms to re-evaluate the right lower lobe nodular finding. 5. Bilateral symmetric renal atrophy related to renal atherosclerotic changes. There are numerous bilateral simple renal cysts. At the left kidney superior pole there is a 1.6 cm exophytic hyperdense mass which demonstrates postcontrast enhancement concerning for primary renal neoplasm. Recommend urologic consultation. 6. Bilateral nonobstructing nephrolithiasis. 7. Redemonstration of significant prostatomegaly with evidence of bladder outlet obstruction and multiple subcentimeter bladder diverticula. 8. No acute abdominal/pelvic process. Stable anterior hepatic cysts versus cavernous hemangioma. 9. No acute osseous abnormality or blastic findings to suggest prostatic metastatic disease. D/ / 10/11/2017 15:25:50 Андрей Lazo MD / remi Interpreting Provider: Андрей Lazo MD Consult Discharge Plan - Plan Instructions: Chronic Hypertension (DC) Additional Instructions: Please follow up with her primary care provider at next available appointment Please follow up with cardiology per their recommendations and scheduled appointment Please follow up with gastroenterology in approximately 2 weeks for further evaluation Please take all medications as prescribed Please contact your primary care provider or return to the emergency department if you have any worsening of your symptoms or any further concerns about your health. Referrals: [facility] [Provider Group] [facility] [Provider Group] (appt requested office will call with date and time) Santiago Weaver DO [Primary Care Provider] - 10/18/17 1:30 pm Frank Young MD [Partnered Physician] - 10/26/17 9:15 am <Royal Ravi - Last Filed: 10/15/17 15:22> Date of Encounter: 10/13/17 - Time Spent With Patient Total time spent is greater than 50% in coordination of care (as documented) at patient's floor/unit and/or counseling patient: GI History of Present Illness - Data of Consult Requesting Physician: Horace Woods DO - Consult Narrative History of present illness: Mr. Silva is a 82 year old male - Constitutional Vitals: Temp Pulse Resp BP Pulse Ox 98.1 F 67 18 98/64 96 10/13/17 11:00 10/13/17 11:00 10/13/17 11:00 10/13/17 11:00 10/13/17 11:00 Results - Labs CBC & Chem 7: 10/13/17 01:05 10/13/17 01:05 Labs: Last Result Calcium 8.9 mg/dL (8.6-10.3) 10/13/17 01:05 Troponin I 0.15 ng/mL (< 0.04) H* 10/10/17 16:37 Triglycerides 140 mg/dL (< 150) 10/11/17 02:37 Entire Visit Hgb 10.1 g/dL (12.9-16.9) L 10/13/17 01:05 Hct 30.4 % (37.5-50.1) L 10/13/17 01:05 PT 10.9 Seconds (9.4-12.1) 10/10/17 02:55 - ABG ABG results: PT/INR, D-dimer PT 10.9 Seconds (9.4-12.1) 10/10/17 02:55 - Attending Attestation Mr. Luna is a pleasant 82-year-old white male who has had progressive dysphagia. He will need an upper endoscopy with possible dilation but unfortunately we cannot do that now because of the anticoagulation on board.. I have scheduled him for the EGD today further recommendations will be made after the endoscopy concern for esophageal neoplasm is also there given his part given his history further recommendations are made after endoscopy thank you for this consultation I have personally performed a face to face evaluation on this patient. I have reviewed and agree with the care plan. History and Exam by me shows:
[2017-10-13 11:31] VITALS: BP 98/64
--- NOTE | 2017-10-13 13:32 | Discharge Summary ---
Addendum entered and electronically signed by Duane Decker DO 10/13/17 14:30 : Please follow up with urology for the mass on your kidney. Follow up will be arranged by Urology. Original Note: <Duane Decker - Last Filed: 10/13/17 13:57> - NOTES TO OUTPATIENT PROVIDER Notes to Outpatient Provider: Patient was admitted to the hospital for chest pain and elevated troponin. Cardiology has been consult on this patient and did not feel that this was an NSTEMI. He should also was found to have a mass on one of his kidneys and a nodule in his lung urology has been consult and stated they would follow up this patient as an outpatient. Patient also had a drop in his hemoglobin and had an upper endoscopy which did not show any evidence of bleeding but GI did want to follow up in approximately 2 weeks for possible dilation. Patient did have an episode of atrial fibrillation while in the hospital. It is unclear whether or not this is new onset. The patient will not be started on anticoagulation at this time due to the patient having a decrease in his hemoglobin and GI wanting to do a esophageal dilation once he is off anticoagulation. Long-term anticoagulation will need to be addressed on an outpatient basis. Orders not resulted at time of discharge: Pending orders 10/12/17 10:22 Occult Blood,Stool [BF] Routine 10/13/17 10:50 Surgical Pathology [PTH] Routine Date of Encounter: 10/13/17 Time of Encounter: 13:29 - Discharge Diagnosis (1) Anemia Priority: Primary Status: Acute Qualifiers: Anemia type: unspecified type Qualified Code(s): D64.9 - Anemia, unspecified (2) New onset atrial fibrillation Priority: Primary Status: Acute (3) NSTEMI (non-ST elevated myocardial infarction) Priority: Primary Status: Ruled-out (4) Coronary artery disease Priority: Primary Status: Acute Qualifiers: Coronary Disease-Associated Artery/Lesion type: [place] artery [place] vs. transplanted heart: [place] heart Associated angina: without angina Qualified Code(s): I25.10 - Atherosclerotic heart disease of [place] coronary artery without angina pectoris (5) Elevated troponin Priority: Primary Status: Acute (6) Renal mass Priority: Primary Status: Chronic (7) Hyperlipidemia Priority: Secondary Status: Acute Qualifiers: Hyperlipidemia type: mixed hyperlipidemia Qualified Code(s): E78.2 - Mixed hyperlipidemia (8) Hypertension Priority: Secondary Status: Acute Qualifiers: Hypertension type: essential hypertension Qualified Code(s): I10 - Essential (primary) hypertension (9) DVT prophylaxis Priority: Primary Status: Acute Hospital course: Mr. Silva is a 82 year old male that was admitted to the hospital for chest pain and elevated troponin. Cardiology had been consult on this patient and rule out that this was a NSTEMI. During the patient's hospitalization his feet did seem called Lola obtain a CTA of the chest abdomen and pelvis. There was findings of a possible mass on one of the kidneys and a nodule in the lung. Urology has been consult on this patient and stated that they would follow with the patient as an outpatient. The patient had one episode of atrial fibrillation. Is unclear whether this is new onset. The patient denies ever having any history of age fibrillation however his sister states that she thinks that he has been in and out of atrial fibrillation for a long time. The patient has also had a drop in his hemoglobin. We consult and GI who did an upper endoscopy and did not identify any bleeding. They did not feel that a colonoscopy was necessary at this time. They did want to follow with the patient as outpatient in approximately 2 weeks. We will not start this patient on any anticoagulation at this time due to the patient possibly having a esophageal dilation by GI and a approximately 2 weeks that there requesting the patient be off anticoagulation. Further anticoagulation will need to be addressed on an outpatient basis. The patient is stable and appropriate for discharge. The patient will be discharged home at this time with the recommendation to contact the primary care provider or return to the emergency department if they have any worsening of her symptoms or any further concerns about their health. Discharge discussed with: patient - Time Spent with Patient Total time spent providing and/or coordinating discharge services: Greater than 30 minutes (40) - Discharge Medications Home Medications: Aspirin 81 mg PO DAILY PRN 04/20/16 [History] Cholecalciferol (D-3) [Vitamin D] 2,000 unit PO DAILY 04/20/16 [History] Clopidogrel [Plavix] 75 mg PO DAILY 04/20/16 [History] Cyanocobalamin (B-12) [Vitamin B12] 1,000 mcg PO DAILY 04/20/16 [History] Fluticasone Propionate Nasal [Flonase] 1 spray NS BID 04/20/16 [History] Furosemide [Lasix] 20 - 30 mg PO DAILY 04/20/16 [History] Ipratropium [place] 1 spray NS BID 04/20/16 [History] L. Acidophilus/Pectin, [place] [Acidophilus Probiotic Capsule] 1 cap PO DAILY [History] Losartan Potassium [Cozaar] 100 mg PO DAILY 04/20/16 [History] Magnesium 250 mg PO DAILY 04/20/16 [History] Nitroglycerin [Nitrostat] 0.4 mg SL Q5M PRN 04/20/16 [History] Oregano Oil [Oil of Oregano] 1,500 mg PO DAILY 04/20/16 [History] Vitamin E (Dl,Tocopheryl Acet) [Vitamin E] 100 unit PO DAILY 04/20/16 [History] Atorvastatin [Lipitor] 40 mg PO HS 09/25/17 [History] Fish Oil/Borage/Flax/Om3,6,9#1 [[place] 3-6-9 1,200 mg Softgel] 1,200 mg PO DAILY 09/25/17 [History] Hydralazine HCl 50 mg PO TID 09/25/17 [History] Vitamin O 2.5 ml PO BID 09/25/17 [History] Carvedilol [Coreg] 6.25 mg PO BIDWM #60 tablet 09/26/17 [Rx] Allergies/Adverse Reactions: 3 Allergy/AdvReac Type Severity Reaction Status Date / Time Dicloxacillin Allergy Swelling Verified 04/20/16 09:46 of Lip/Tongue/Throat nifedipine Allergy See Verified 04/20/16 09:46 Comments quinine Allergy See Verified 04/20/16 09:46 Comments Zuzjzjk-Owt-Iza Reductase Allergy See Verified 04/20/16 09:46 Inhibitor Comments [Statins] Sulfa (Sulfonamide Allergy See Verified 04/20/16 09:46 Antibiotics) Comments JUDITH Inhibitors AdvReac Cough Verified 04/20/16 09:46 Date of admission: 10/10/17 07:52 Primary care physician: Santiago Weaver DO Consults: 10/11/17 16:36 Consult to Urology [CONS] Routine Consulting Provider: Urology [facility] Reason for Consult: 1.6 cm exophytic hyperdense mass which demonstrates postcontrast enhancement concerning for primary renal neoplasm. Time Notified: 16:37 Call Completed: Yes 10/12/17 13:20 Consult to Gastroenterology [CONS] Routine Consulting Provider: Delisa Branch Reason for Consult: hgb dropping, recently on heparin Call Completed: Yes Discharging clinician: Duane Decker Anticipated date of discharge: 10/13/17 - Constitutional Vitals: Temp Pulse Resp BP Pulse Ox 98.1 F 67 18 98/64 96 10/13/17 11:00 10/13/17 11:00 10/13/17 11:00 10/13/17 11:00 10/13/17 11:00 General appearance: Present: A&O X 3, no acute distress, answers questions appropriately - Head Head exam: Present: atraumatic, normocephalic - Neck Neck exam general surgery: Present: full ROM, normal inspection, trachea midline - Respiratory Respiratory exam: Present: CTAB. Absent: accessory muscle use, rales, rhonchi, wheezes - Cardiovascular Cardiovascular exam: Present: RRR, +S1, +S2. Absent: diastolic murmur, gallop, rubs, systolic murmur - GI/Abdominal GI/Abdominal exam: Present: normal bowel sounds, soft, no peritoneal signs. Absent: distended, tenderness - Extremities Exam Extremities exam: Present: warm. Absent: pedal edema, tenderness - Neurological Exam Neurological exam: Present: alert, oriented X3, no focal deficits. Absent: facial droop, speech deficit - Psychiatric Psychiatric exam: Present: normal affect, normal mood - Skin Skin exam: Present: dry, intact, warm - Patient Status Disposition: Home, Self-Care Condition: Fair Functional capacity at discharge: independent ambulation Overall status at discharge: patient is progressing back to baseline - Discharge Instructions Instructions: Chronic Hypertension (DC) Follow Up With: Cardiology [facility] [Provider Group] Gastroenterology [facility] [Provider Group] (appt requested office will call with date and time) Santiago Weaver DO [Primary Care Provider] - 10/18/17 1:30 pm Frank Young MD [Partnered Physician] - 10/26/17 9:15 am Additional Instructions: Please follow up with her primary care provider at next available appointment Please follow up with cardiology per their recommendations and scheduled appointment Please follow up with gastroenterology in approximately 2 weeks for further evaluation Please take all medications as prescribed Please contact your primary care provider or return to the emergency department if you have any worsening of your symptoms or any further concerns about your health. - Diet and Activity Activity: increase activity as tolerated Diet: advance to your usual diet - VTE Documentation of Mechanical Device: Graduated compression elastic hosiery <Horace Woods - Last Filed: 10/13/17 19:33> Orders not resulted at time of discharge: Pending orders 10/12/17 10:22 Occult Blood,Stool [BF] Routine 10/13/17 10:50 Surgical Pathology [PTH] Routine Date of Encounter: 10/13/17 - Discharge Diagnosis (1) NSTEMI (non-ST elevated myocardial infarction) Status: Ruled-out (2) Atrial fibrillation Priority: Secondary Status: Chronic Qualifiers: Atrial fibrillation type: paroxysmal Qualified Code(s): I48.0 - Paroxysmal atrial fibrillation (3) Anemia Status: Acute Qualifiers: Anemia type: unspecified type Qualified Code(s): D64.9 - Anemia, unspecified (4) Hypertension Status: Acute Qualifiers: Hypertension type: essential hypertension Qualified Code(s): I10 - Essential (primary) hypertension (5) Coronary artery disease Status: Acute Qualifiers: Coronary Disease-Associated Artery/Lesion type: [place] artery [place] vs. transplanted heart: [place] heart Associated angina: without angina Qualified Code(s): I25.10 - Atherosclerotic heart disease of [place] coronary artery without angina pectoris (6) Hyperlipidemia Status: Acute Qualifiers: Hyperlipidemia type: mixed hyperlipidemia Qualified Code(s): E78.2 - Mixed hyperlipidemia (7) Renal mass Status: Chronic Hospital course: Mr. Silva is a 82 year old male - Time Spent with Patient Total time spent providing and/or coordinating discharge services: 39min Date of admission: 10/10/17 07:52 Primary care physician: Santiago Weaver DO Consults: 10/11/17 16:36 Consult to Urology [CONS] Routine Consulting Provider: Urology [facility] Reason for Consult: 1.6 cm exophytic hyperdense mass which demonstrates postcontrast enhancement concerning for primary renal neoplasm. Time Notified: 16:37 Call Completed: Yes 10/12/17 13:20 Consult to Gastroenterology [CONS] Routine Consulting Provider: Gastroenterology [facility] Reason for Consult: hgb dropping, recently on heparin Call Completed: Yes - Constitutional Vitals: Temp Pulse Resp BP Pulse Ox 98.1 F 67 18 98/64 96 10/13/17 11:00 10/13/17 11:00 10/13/17 11:00 10/13/17 11:00 10/13/17 11:00 - Attending Attestation I examined this patient and my medical decision-making was reviewed with the Resident Physician on 10/13/17. I agree with the documented findings, disposition and treatment plan as described except to the extent set forth below. Mr Silva has been admitted for acute NSTEMI. He was found to have anemia. He had EGD and will follow up with GI. Hold anticoag for parox a fib till after full GI work up. He is now ready for discharge home. Exam alert Comfortable Mucus membranes dry Heart reg No wheeze Plan D/C home
== END 2017-10-13 15:12 | disposition home or self-care (01) | DRG 313 ==
LOC: EMEROO 02:47 → SUATTDRO 07:52 → 2SOUTHHOLD 07:52 → 2NENU 18:07
PROVIDERS: ADMIT Internal Medicine; ATTEND Internal Medicine